=== PATIENT | female | born 1985 | race Caucasian/White ===

== ENCOUNTER 2023-08-31 12:42 | Outpatient (AMB) | payer MEDICAID, SELFPAY ==
--- NOTE | 2023-08-31 12:44 | A.OFFVIS_ITS ---
Intake Vital Signs 08/31/23 12:49 Height 5 ft 11 in Weight 145 lb BMI 20.2 BP 126/92 H Blood Pressure Location Lt brachial Position Sitting Pulse 113 H Intake Visit Reasons: Irritable bowel syndrome Intake Note: Lizette presents in the office for IBS. CC: She states that her stomach has been bothering her. She has been having a lot of nausea - she used to have pin worm infections twice and she is nervous it could be back again. Random gagging feeling. She has diarrhea and IBS. She states that lately she has been experiencing constipation. She has endometriosis. Manager Intermediate Required: No Allergies cromolyn Allergy (Mild, Verified 08/31/23 12:50) Unknown fluconazole [From Diflucan] Allergy (Mild, Verified 08/31/23 12:50) Unknown amoxicillin Allergy (Unknown, Verified 08/31/23 12:50) Hives amphetamine Allergy (Unknown, Verified 08/31/23 12:50) Unknown lansoprazole [Prevacid] Allergy (Unknown, Verified 08/31/23 12:50) hives penicillin V Allergy (Unknown, Verified 08/31/23 12:50) Hives sertraline [Zoloft] Allergy (Unknown, Verified 08/31/23 12:50) hives thyroid, pork [From [place] Thyroid] Allergy (Unknown, Verified 08/31/23 12:50) Unknown HPI Irritable bowel syndrome HPI Details 38-year-old female here for initial eval uation of IBS. She is referred by Lizette Terry DO of [facility]. 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 Pork products uncertain Diflucan Cromolym * Tivra LABS: none in our system TODAY'S VISIT Mother has MS and Crohns. She was sent to see Dr. Ha initially as she was told he is an expert in mast cell activation and GI problems. She is aware of contraindication of scopes. Has dysphagia of solid foods mid sternally. She would like an RX for Ensure....unsure how to order this. burning squeezing in the epigastrum ? diaphragm spasms as well. AT times she feels gas stuck in esophagus. She studies voice and speech pathology. Had diarrhea in past but now more CIC. Moving her bowels (drinks marzena, drinks a lot of water, intakes fiber). She struggles 1 weeks out of every month. But stools are rock hard and she uses glycerin supps. Has endometriosis. Takes probiotic. Want to treated for PInworms and had nausea in past with this, will retests. Has reactivation of many viral infections. Hx elevated bilirubin. Plan: Panc elastate, RAST, HP breath test, barium swallow. CAN NOT SCOPE R/T E-D DX. CRP, PROMETHEUS IBD SERIES. O&P (? [place] OTHER PARASITE INFECTIONS CLINICALLY??) GET IN TO SEE DR. HA. Continue follow with Dr. Francis son per patient request.. PFSH Surgical History Hx of colonoscopy No pertinent past surgical history Family History Father Webber esophagus CAD (coronary artery disease) History of ETOH abuse Mother Multiple sclerosis Lung cancer Son Autism Sister Anxiety Review of Systems Const Denies fatigue, Reports fever(s), Reports malaise, Denies night sweats, Reports poor appetite and Denies weight loss Eyes Details: glasses Reports requires corrective lenses ENT Reports Normal hearing present, Denies dental pain, Reports dysphagia, Denies hearing loss, Denies mouth pain, Reports neck pain, Denies odynophagia, Denies throat swelling, Denies tongue swelling and Reports other (Dentition adequate) Card Reports no additional complaints Resp Reports no additional complaints GI Reports abdominal pain, Denies melena, Denies bloating, Denies hematochezia, Reports constipation, Denies GI cramping, Reports dysphagia, Denies excessive flatus, Denies early satiety, Reports heartburn, Reports diarrhea, Reports na usea, Denies odynophagia, Denies vomiting and Denies hematemesis Musc Reports neck pain Skin/Breast Denies pruritus, Denies lesions, Denies rash and Denies jaundice Neuro Reports Normal hearing present and Denies Abnormal speech present Endo Denies fatigue Aller/Immun Denies throat swelling and Denies tongue swelling Physical Exam Vital Signs: Last Vital Signs Pulse 113 H 08/31/23 12:49 BP 126/92 H 08/31/23 12:49 BMI result Body Mass Index 20.2 Const General: cooperative, no acute distress, well developed and well groomed Nutritional Appearance: average body habitus and well nourished Orientation/consciousness: oriented to person, oriented to place and oriented to time Limitations: No language barrier HEENT Head: Yes normocephalic and Yes atraumatic Eyes General: appearance normal, both eyes and all related structures Pupils: Equal, round and reactive pupils present Neck Neck: Yes normal visual inspection and Yes no lymphadenopathy Thyroid: Thyroid normal Resp Effort & Inspection: normal respiratory effort and able to speak in complete sentences Auscultation: clear to auscultation bilaterally Cardio Rate: regular rate Rhythm: regular rhythm Heart sounds: Normal, physiologic split S2 sound present Peripheral pulses: radial pulses present and posterior tibial pulses present GI Inspection: No distended and No Abdominal panniculus present Palpation (GI): Soft to palpation, nontender, no guarding, not rigid and No hepatosplenomegaly present Percussion: Yes normal to percussion Auscultation: normal bowel sounds Rectal Exam - Female: deferred Skin General skin exam: no rashes or lesions noted, turgor normal, skin not dry, no jaundice, No spider nevi and no striae Rashes: no rashes Nails: normal Neuro General: oriented to person, oriented to place and oriented to time Cranial nerves: Yes Equal, round and reactive pupils present and Yes Normal hearing present Speech: No Abnormal speech present Extrem Other: wearing compression stockings General: Yes normal to inspection, No clubbing, No cyanosis and No edema Psych Appearance: grossly normal and well kempt Mental Status: mental status grossly normal Speech and movement: Normal speech and movement present Affect: normal affect Attitude: cooperative Thought process: Normal thought process present and not confabulating Thought content: Normal thought content present Insight: Other insight findings present (Psych) Judgement: Other judgement findings present (Psych) Assessment & Plan Assessment & Plan (1) Mariusz-Danlos syndrome: Code(s): Q79.60 - Mariusz-Danlos syndrome, unspecified Plan: Mother has MS and Crohns. She was sent to see Dr. Ha initially as she was told he is an expert in mast cell activation and GI problems. She is aware of contraindication of scopes. Has dysphagia of solid foods mid sternally. She would like an RX for Ensure....unsure how to order this. burning squeezing in the epigastrum ? diaphragm spasms as well. AT times she feels gas stuck in esophagus. She studies voice and speech pathology. Had diarrhea in past but now more CIC. Moving her bowels (drinks marzena, drinks a lot of water, intakes fiber). She struggles 1 weeks out of every month. But stools are rock hard and she uses glycerin supps. Has endometriosis. Takes probiotic. Want to treated for PInworms and had nausea in past with this, will retests. Has reactivation of many viral infections. Hx elevated bilirubin. Plan: Panc elastate, RAST, HP breath test, barium swallow. CAN NOT SCOPE R/T E-D DX. CRP, PROMETHEUS IBD SERIES. O&P (? [place] OTHER PARASITE INFECTIONS CLINICALLY??) GET IN TO SEE DR. HA. Continue follow with Dr. Francis son per patient request.. (2) Diarrhea: Code(s): R19.7 - Diarrhea, unspecified (3) GERD (gastroesophageal reflux disease): Code(s): K21.9 - Gastro-esophageal reflux disease without esophagitis (4) Constipation: Code(s): K59.00 - Constipation, unspecified (5) Family history of Crohn's disease: Code(s): Z83.79 - Family history of other diseases of the digestive system (6) Dysphagia: Code(s): R13.10 - Dysphagia, unspecified Orders: Orders H Pylori Breath Test 08/31/23 R19.7 - Diarrhea, unspecified, Z83.79 - Family history of other diseases of the digestive system, R13.10 - Dysphagia, unspecified Pancreatic Elastase-1 08/31/23 R19.7 - Diarrhea, unspecified, Z83.79 - Family history of other diseases of the digestive system, R13.10 - Dysphagia, unspecified Rast Allergen 08/31/23 R19.7 - Diarrhea, unspecified, Z83.79 - Family history of other diseases of the digestive system, R13.10 - Dysphagia, unspecified FL barium swallow 08/31/23 R19.7 - Diarrhea, unspecified, Z83.79 - Family history of other diseases of the digestive system, R13.10 - Dysphagia, unspecified Ova and Parasite 08/31/23 R19.7 - Diarrhea, unspecified, Z83.79 - Family history of other diseases of the digestive system, R13.10 - Dysphagia, unspecified C Reactive Protein 08/31/23 R19.7 - Diarrhea, unspecified, Z83.79 - Family history of other diseases of the digestive system, R13.10 - Dysphagia, unspecified [facility] IBD SGI 08/31/23 R19.7 - Diarrhea, unspecified, Z83.79 - Family history of other diseases of the digestive system, R13.10 - Dysphagia, unspecified Coding Level of Care Code New Pt Level 3 (01604) Diagnoses Mariusz-Danlos syndrome Q79.60 Diarrhea R19.7 GERD (gastroesophageal reflux disease) K21.9 Constipation K59.00 Family history of Crohn's disease Z83.79 Dysphagia R13.10
[2023-08-31 12:49] VITALS: BP 126/92; PULSE 113; BMI 20.2
== END 2023-08-31 14:07 | disposition home or self-care (01) ==
PROVIDERS: PCP Family Medicine; Visit Provider Nurse Practitioner
DX: Q79.60 Ehlers-Danlos syndrome, unspecified (principal); R19.7 Diarrhea, unspecified; K21.9 Gastro-esophageal reflux disease without esophagitis; K59.00 Constipation, unspecified; Z83.79 Family history of other diseases of the digestive system; R13.10 Dysphagia, unspecified
CPT/HCPCS: 99203

== ENCOUNTER → 2023-08-31 12:42 | Outpatient (BNVA) | payer MEDICAID, SELFPAY | PROVIDERS: PCP Family Medicine; Visit Provider Nurse Practitioner | DX: K21.9 Gastro-esophageal reflux disease without esophagitis (principal); K59.00 Constipation, unspecified; Q79.60 Ehlers-Danlos syndrome, unspecified; R19.7 Diarrhea, unspecified; R13.10 Dysphagia, unspecified; Z83.79 Family history of other diseases of the digestive system | CPT/HCPCS: 99202 ==

== ENCOUNTER 2024-05-18 10:38 | Outpatient (AMB) | payer MEDICAID, SELFPAY ==
--- NOTE | 2024-05-18 10:39 | MHC.OFFVIS ---
Intake Visit Reasons: f/u - pin worms Intake Note: Patient follow up for pin-worms Patient cc: abdominal pain with cramping and bloating on and off, between diarrhea and constipation with dark stool and swallowing problems. Heavy Equipment Technician Required: No Accompanied by: Self / Same As Patient Allergies cromolyn Allergy (Mild, Verified 05/18/24 10:39) Unknown fluconazole [From Diflucan] Allergy (Mild, Verified 05/18/24 10:39) Unknown amoxicillin Allergy (Unknown, Verified 05/18/24 10:39) Hives amphetamine Allergy (Unknown, Verified 05/18/24 10:39) Unknown lansoprazole [Prevacid] Allergy (Unknown, Verified 05/18/24 10:39) hives penicillin V Allergy (Unknown, Verified 05/18/24 10:39) Hives sertraline [Zoloft] Allergy (Unknown, Verified 05/18/24 10:39) hives thyroid, pork [From [place] Thyroid] Allergy (Unknown, Verified 05/18/24 10:39) Unknown HPI HPI f/u - pin worms: Details: 38-year-old female being called for f/u--hx of MCAS, POTs and mona Danlos RECAP: Initially saw vanessa Thomas Mother has MS and Crohns. She is aware of contraindication of scopes. Has dysphagia of solid foods mid sternally. burning squeezing in the epigastrum ? diaphragm spasms as well. AT times she feels gas stuck in esophagus. She studies voice and speech pathology. Had diarrhea in past but now more CIC. Moving her bowels (drinks marzena, drinks a lot of water, intakes fiber). She struggles 1 week out of every month. Stools can be rock hard and she uses glycerin supps. Has endometriosis. Takes probiotic. Want to treated for PInworms and had nausea in past with this. Has reactivation of many viral infections. Hx elevated bilirubin. TESTS: RAST: pos for egg white, and hazelnut--low level CRP- neg HP breath test--neg INTERIM: she is recovering from drinking coconut water she is gluten sensitive mold in the house and is being addressed she avoids raw veg takes histogest which seems to help itching skin she tried rifaximin for 2 weeks and did help some symptoms andrés distention and bloating she has GERD, FH of barretts esophagus she had bad reaction to zantac she has trouble following diets due to ADHD and autism she gets flu like symptoms with cromolyn she takes quercetin but low dose she bueno shave some RUQ discomfort Exam-limited: looks relaxed, talking easily A/P: 1/ MCAS and assorted sx PLAN: 1/ hold on endoscopies and bx for the moment 2/ recommend trial of famotidine 3/ nutrients and vit level check 4/ US abdo if no better with famotidine PFSH Surgical History Hx of colonoscopy No pertinent past surgical history Family History Father Webber esophagus CAD (coronary artery disease) History of ETOH abuse Mother Multiple sclerosis Lung cancer Son Autism Sister Anxiety Telehealth Telehealth Telehealth Platform: [facility] Location of provider rendering services: practice address Location of patient: address on file Patient Identification confirmed using: Name, : Yes Telehealth method: video Patient verbally consented to treatment: Yes Patient verbally consented to billing insurance company: Yes Patient informed of any privacy concerns related to visit: Yes Minutes spent on Phone/Video with Pt.: 24 Assessment & Plan Assessment & Plan (1) Malnutrition: Code(s): E46 - Unspecified protein-calorie malnutrition Category: Medical Plan: see above Orders: Orders Vitamin A Today E46 - Unspecified protein-calorie malnutrition Vitamin B1 Today E46 - Unspecified protein-calorie malnutrition Vitamin B12 and Folate Today E46 - Unspecified protein-calorie malnutrition Vitamin B5 (Pantothenic Acid) Today E46 - Unspecified protein-calorie malnutrition Vitamin B6 Today E46 - Unspecified protein-calorie malnutrition Vitamin C Today E46 - Unspecified protein-calorie malnutrition Vitamin E Today E46 - Unspecified protein-calorie malnutrition Zinc Today E46 - Unspecified protein-calorie malnutrition Ferritin Today E46 - Unspecified protein-calorie malnutrition Tryptase Today E46 - Unspecified protein-calorie malnutrition, R19.7 - Diarrhea, unspecified Histamine Plasma Today E46 - Unspecified protein-calorie malnutrition Immunoglobulins,IgG IgA IgM Today E46 - Unspecified protein-calorie malnutrition BRENDEN Reflex Titer and Pattern Today E46 - Unspecified protein-calorie malnutrition, R79.82 - Elevated C-reactive protein (CRP) Vitamin B3 (Niacin) Today E46 - Unspecified protein-calorie malnutrition Vitamin D 25-OH Total Today E46 - Unspecified protein-calorie malnutrition Vitamin K1 Today E46 - Unspecified protein-calorie malnutrition Magnesium Today E46 - Unspecified protein-calorie malnutrition Medications: New famotidine 20 mg PO BEDTIME 30 tabs 0RF Coding Level of Care Code Est Pt Level 4 (30238) Diagnoses Malnutrition E46
== END 2024-05-18 11:28 | disposition home or self-care (01) ==
LOC: HO.HGI 10:38
PROVIDERS: PCP Family Medicine; Visit Provider Internal Medicine Gastroenterology
DX: E46 Unspecified protein-calorie malnutrition (principal)
CPT/HCPCS: 99214

== ENCOUNTER → 2024-05-18 10:38 | Outpatient (BNVA) | payer MEDICARE, MEDICAID, SELFPAY | PROVIDERS: PCP Family Medicine; Visit Provider Internal Medicine Gastroenterology | DX: E46 Unspecified protein-calorie malnutrition (principal) | CPT/HCPCS: 99212 ==

== ENCOUNTER 2024-08-10 09:06 | Outpatient (AMB) | payer MEDICAID, SELFPAY ==
--- NOTE | 2024-08-10 09:06 | A.OFFVIS_ITS ---
Intake Visit Reasons: Gastroesophageal reflux disease (GERD) Intake Note: Lizette presents as a telehealth today. States that she believes that she is having acid reflux but she is not sure so she just wants to figure what goes on. Allergies cromolyn Allergy (Mild, Verified 08/10/24 09:06) Unknown fluconazole [From Diflucan] Allergy (Mild, Verified 08/10/24 09:06) Unknown amoxicillin Allergy (Unknown, Verified 08/10/24 09:06) Hives amphetamine Allergy (Unknown, Verified 08/10/24 09:06) Unknown lansoprazole [Prevacid] Allergy (Unknown, Verified 08/10/24 09:06) hives penicillin V Allergy (Unknown, Verified 08/10/24 09:06) Hives sertraline [Zoloft] Allergy (Unknown, Verified 08/10/24 09:06) hives thyroid, pork [From [place] Thyroid] Allergy (Unknown, Verified 08/10/24 09:06) Unknown HPI HPI Gastroesophageal reflux disease (GERD): Details: 38-year-old female being called for f/u--hx of MCAS, POTs and mona Danlos RECAP: Initially saw vanessa Thomas Mother has MS and Crohns. She is aware of contraindication of scopes. Has dysphagia of solid foods mid sternally. burning squeezing in the epigastrum ? diaphragm spasms as well. AT times she feels gas stuck in esophagus. She studies voice and speech pathology. Had diarrhea in past but now more CIC. Moving her bowels (drinks marzena, drinks a lot of water, intakes fiber). She struggles 1 week out of every month. Stools can be rock hard and she uses glycerin supps. Has endometriosis. Takes probiotic. Want to treated for PInworms and had nausea in past with this. Has reactivation of many viral infections. Hx elevated bilirubin. TESTS: RAST: pos for egg white, and hazelnut--low level CRP- neg HP breath test--neg INTERIM: she tried the famotidine had soem strange reaction, but if she drinks more water with it then she is ok she feels better with it she is going to get allergy shots as well reviewed labs, low normal still dealing with mold in her apartment she takes quercetin but low dose Exam-limited: looks relaxed, talking easily A/P: 1/ MCAS and assorted sx PLAN: 1/ doing better with famotidine, can increase to 20 mg bid 2/ cont with quercetin 3/ can increase Vit C to 2 g daily PFSH Surgical History Hx of colonoscopy No pertinent past surgical history Family History Father Webber esophagus CAD (coronary artery disease) History of ETOH abuse Mother Multiple sclerosis Lung cancer Son Autism Sister Anxiety Telehealth Telehealth Telehealth Platform: [address] Location of provider rendering services: practice address Location of patient: address on file Patient Identification confirmed using: Name, : Yes Telehealth method: video Patient verbally consented to treatment: Yes Patient verbally consented to billing insurance company: Yes Patient informed of any privacy concerns related to visit: Yes Minutes spent on Phone/Video with Pt.: 11 Assessment & Plan Assessment & Plan (1) Mast cell activation syndrome: Code(s): D89.40 - Mast cell activation, unspecified Category: Medical Plan: see above Medications: Changed From famotidine 20 mg PO ONCE 30 tabs 3RF To famotidine 20 mg PO BID 60 tabs 3RF Coding Level of Care Code Tele Est Pt Level 3 (15512) Diagnoses Mast cell activation syndrome D89.40
== END 2024-08-10 09:27 | disposition home or self-care (01) ==
LOC: HO.HGI 09:06
PROVIDERS: Visit Provider Internal Medicine Gastroenterology
DX: D89.40 Mast cell activation, unspecified (principal); K21.9 Gastro-esophageal reflux disease without esophagitis
CPT/HCPCS: 99213

== ENCOUNTER → 2024-08-10 09:06 | Outpatient (BNVA) | payer MEDICAID, SELFPAY | PROVIDERS: Visit Provider Internal Medicine Gastroenterology ==

== ENCOUNTER 2025-01-28 10:10 | Outpatient (AMB) | payer MEDICAID, SELFPAY ==
--- NOTE | 2025-01-28 10:11 | A.OFFVIS_ITS ---
Vital Signs 01/28/25 10:14 Height 5 ft 10.5 in Weight 160 lb BMI 22.6 BP 115/76 Blood Pressure Location Lt brachial Position Sitting Pulse 95 Intake Visit Reasons: 6 month follow up Intake Note: Lizette presents in the office as a 6 month follow up. CC: She states that she was having adverse reactions to the hydroxyzine that they were giving her to try and treat her mast cell and also states she may also have an adverse reaction to benadryl. She is on a short term treatment for mycoplasma pneumonia. She has 2 more doses of tafenoquine as well that she was prescribed. Her skin has gotten better a long with her migraines until she took the hydroxyzine and that gave her migraines as well. She states that she takes her BP at home due to her POTS. Manager Services Required: No Allergies cromolyn Allergy (Mild, Verified 01/28/25 10:15) Unknown fluconazole [From Diflucan] Allergy (Mild, Verified 01/28/25 10:15) Unknown amoxicillin Allergy (Unknown, Verified 01/28/25 10:15) Hives amphetamine Allergy (Unknown, Verified 01/28/25 10:15) Unknown lansoprazole [Prevacid] Allergy (Unknown, Verified 01/28/25 10:15) hives penicillin V Allergy (Unknown, Verified 01/28/25 10:15) Hives sertraline [Zoloft] Allergy (Unknown, Verified 01/28/25 10:15) hives aripiprazole [From Abilify] Adverse Reaction (Mild, Verified 01/28/25 10:15) Unknown hydroxyzine Adverse Reaction (Mild, Verified 01/28/25 10:15) stiff neck thyroid, pork [From [place] Thyroid] Adverse Reaction (Unknown, Verified 01/28/25 10:15) mouth itch HPI HPI 6 month follow up: Details: 39-year-old female being seen for f/u--hx of MCAS, POTs and mona Danlos RECAP: Initially saw vanessa Thomas Mother has MS and Crohns. She is aware of contraindication of scopes. Has dysphagia of solid foods mid sternally. burning squeezing in the epigastrum ? diaphragm spasms as well. AT times she feels gas stuck in esophagus. She studies voice and speech pathology. Had diarrhea in past but now more CIC. Moving her bowels (drinks marzena, drinks a lot of water, intakes fiber). She struggles 1 week out of every month. Stools can be rock hard and she uses glycerin supps. Has endometriosis. Takes probiotic. Want to treated for PInworms and had nausea in past with this. Has reactivation of many viral infections. Hx elevated bilirubin. TESTS: RAST: pos for egg white, and hazelnut--low level CRP- neg HP breath test--neg INTERIM: she feels constipated since estrogen was increased she tried rifaximin and it has helped some of her constipation and distention she still feels distended and abdominal pressure she is anxious as her mother had diverticulitis she is having nausea a lot heartburn persistent she is not keen on egd or colo she had reaction to hydroxyzine 10 mg given by locomotive observer she has swallowing issues, choking on saliva, usu with solids EXAM: GENERAL: The patient is well developed and nontoxic. VITAL SIGNS:see workflow HEENT: Nonicteric sclerae, PERRLA, EOMI. Oropharynx clear. Moist mucous membranes. Conjunctivae appear well perfused. No thyroid mass. CHEST: Chest wall is nontender. HEART: Regular rate and rhythm without murmurs. LUNGS: Clear to auscultation bilaterally. ABDOMEN: Soft, positive bowel sounds, nontender, no organomegaly.no flank tenderness SKIN: No rash, no excessive bruising, petechiae, or purpura. NEUROLOGIC: Cranial nerves II-XII intact without motor/sensory deficit. Psych: normal affect A/P: 1/ MCAS and assorted sx 2/ dysphagia ?2/2 GERD 3/ altered bowel habit ?2/2 estrogen PLAN: 1/ CTe r/o small bowel path or other intra abdominal issues 2/ Ba swallow 3/ check labs incl mineral and vitamin levels 4/ cont with famotidine PFSH Surgical History Hx of colonoscopy No pertinent past surgical history Family History Father Webber esophagus CAD (coronary artery disease) History of ETOH abuse Mother Multiple sclerosis Lung cancer Son Autism Sister Anxiety Physical Exam Vital Signs: BMI result Body Mass Index 22.6 Assessment & Plan Assessment & Plan (1) Dysphagia: Code(s): R13.10 - Dysphagia, unspecified Category: Medical Plan: as above (2) Mast cell activation syndrome: Code(s): D89.40 - Mast cell activation, unspecified Category: Medical Plan: as above Orders: Orders CT enterography Today R10.33 - Periumbilical pain FL barium swallow Today R13.10 - Dysphagia, unspecified Coding Level of Care Code Est Pt Level 4 (85436) Diagnoses Dysphagia R13.10 Mast cell activation syndrome D89.40
[2025-01-28 10:14] VITALS: BP 115/76; PULSE 95; BMI 22.6
--- OUTSIDE RECORDS SUMMARY | 2025-01-28 11:21 | XMS_ITS | Clinical Summary ---
Author Organization [facility] Address [address] [place] [address] Care Team Providers Care Telephonic Nurse Case Manager Name Role Phone Alisha Vincent Primary Care Provider [phone] Demi Rachel MD Unavailable [phone] Deng Alexis Unavailable [phone] Allergies Active Allergy Reactions Criticality Noted Date Comments Amoxicillin Unknown Medium 10/05/2021 Amphetamine Palpitations High 11/01/2015 Confusion Cromolyn 07/08/2023 Chest tightness & flu-like symptoms- per pt Dexlansoprazole Other (see comments) 07/21/2016 Esomeprazole Magnesium Other (see comments) Fluconazole Rash Medium 04/13/2022 Fludrocortisone 04/13/2022 Gluten 04/13/2022 Lansoprazole Other (see comments) 07/21/2016 Latex 06/20/2012 Other reaction(s): irritation, vag yeast infection Penicillins Hives,Unknown,Other (see comments) 06/20/2012 Serotonin Unknown Medium 11/01/2015 All SSRIs Sertraline Other (see comments) 07/21/2016 Medications azelaic acid 15 % creamIndication s:Acne vulgaris massage a thin film of azelaic acid cream into the affected area twice daily, in the morning and evening. 50 g 11 2 Active Libby, 28, 3-0.02 mg per tablet Take 1 tablet by mouth. 3 Active Tirosint 50 mcg capsule TAKE 1 (ONE) CAPSULE BY MOUTH HALF HOUR BEFORE BREAKFAST Active levocetirizine (XYZAL) 5 mg tablet Take 1 tablet by mouth 2 (two) times a day as needed. Active liothyronine (CYTOMEL) 5 mcg tablet 1/2 TABLET BY MOUTH HALF HOUR BEFORE BREAKFAST Active levothyroxine sodium (TIROSINT) 88 mcg capsule TAKE 1 TABLET BY MOUTH DAILY 1/2 HOUR BEFORE BREAKFAST 3 Active tacrolimus (PROTOPIC) 0.1 % ointment Apply topically. Ac tive ondansetron (ZOFRAN) 4 mg tabletIndicatio ns:Headache disorder Take by mouth every 8 (eight) hours as needed for nausea or vomiting. Active LORazepam (ATIVAN) 0.5 mg tabletIndicatio ns:anxiety Take 1 tablet (0.5 mg total) by mouth See admin instructions for 2 doses Indications: anxious. 1 tablet by mouth 30 minutes prior to procedure. Can repeat 1 tablet if anxiety not relieved prior to procedure. DO NOT DRIVE TO AND FROM THE APPOINTMENT. DO NOT DRIVE FOR 24 HOURS AFTER TAKING THE TABLET. 2 tablet 3 Active Active Problems Problem Noted Date Diagnosed Date JOSÉ MANUEL (obstructive sleep apnea) 02/10/2023 Assessment & Plan (07/13/2024 8:39 AM EDT): Lizette continues to report poor sleep quality. Her home sleep test did not reveal obstructive sleep apnea however her apnea hypopnea index was high end of normal. Home sleep test can under report obstructive sleep apnea. I have a high suspicion for JOSÉ MANUEL. Lizette would like to proceed with an in lab sleep test. Recommendations 1. In lab polysomnography Assessment & Plan (05/28/2023 1:38 PM EDT): Lizette continues to report poor sleep quality. Her home sleep test did not reveal obstructive sleep apnea however her apnea hypopnea index was high end of normal. Home sleep test can under report obstructive sleep apnea. I still have a high enough suspicion that I recommend she consider an in lab sleep test. Lizette would like to proceed with an in lab sleep test however she needs to coordinate childcare for her son. Lizette will get back to me if she is able to coordinate childcare in order to have the in lab sleep test here at [facility]. Recommendations 1. In lab polysomnography Assessment & Plan (02/10/2023 9:40 PM EDT): She has excessive daytime sleepiness and poor sleep quality. I have some suspicion for obstructive sleep apnea. Recommendations: 1. Home sleep testing Dyspnea 02/10/2023 Assessment & Plan (08/03/2023 8:03 PM EDT): The etiology of her dyspnea is not precisely clear. She has no evidence of obstruction or restriction on pulmonary function testing but she has a mildly reduced diffusion capacity. The etiology of this is not precisely clear either. Further evaluation would include chest imaging. After discussing this with Lizette she would like to proceed with additional testing. Recommendation 1. HRCT of the chest I will call her with the results once available Assessment & Plan (05/28/2023 1:43 PM EDT): She has dyspnea that has progressed over the last 2 years along with a history of heavy tobacco use. PFTs did not show evidence of obstruction or restriction however there is a mild degree of reduced diffusion capacity. I discussed the differential diagnosis of a reduced diffusion capacity with Lizette including blood clot, interstitial lung disease from a variety of causes which could include hypersensitivity pneumonitis or autoimmune condition, or pneumonia. I do not suspect an acute or chronic blood clot or pneumonia. The next step would be to obtain chest imaging. Lizette has had chest x-rays done at outside hospitals which I would like to be able to view to assess for any abnormalities. Recommendations: 1. Obtain previously performed chest imaging including chest x-ray and a CT of the abdomen and pelvis which would include images of the lung bases 2. Will consider HRCT Assessment & Plan (02/10/2023 9:41 PM EDT): She has dyspnea that has progressed over the last 2 years along with a history of heavy tobacco use. Recommendations: 1. 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 POTS (postural orthostatic tachycardia syndrome) 03/26/2021 Autistic disorder 03/26/2021 Dysphonia 07/25/2016 Overview (04/13/2022): Last Assessment & Plan: Clearing, cough, globus assoiated with dysphonia, mostly MTD Significant MTD with extralryngeal/neck muscle use Dexilant works best for LPR sxs but insurance doesn't cover Recommend: Voice rx with Myriam OTC PPI Precautions - book recommended Last Assessment & Plan: Clearing, cough, globus assoiated with dysphonia, mostly MTD Significant MTD with extralryngeal/neck muscle use Dexilant works best for LPR sxs but insurance doesn't cover Recommend: Voice rx with Myriam OTC PPI Precautions - book recommended 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 Depressive disorder 12/09/2005 Dysphagia 12/09/2005 Resolved Problems Problem Noted Date Diagnosed Date Resolved Date History of substance abuse 03/26/2021 0 04/13/2022 Immunizations Name Administration Dates Next Due COVID-19 mRNA (PFIZER) 04/30/2021 Influenza, Quadrivalent 08/27/2019 Family History Medical History Relation Comments Lymphoma Maternal Grandfather Bladder Cancer Mother Multiple sclerosis Mother Autism Mother's Brother Prostate cancer Paternal Grandfather Breast cancer Paternal Grandmother Skin cancer Paternal Grandmother Autism Son Relation Status Comments Father Alive Maternal Grandfather Mother Alive Mother's Brother Paternal Grandfather Paternal Grandmother Son Alive Social History Tobacco Use Types Packs/Day Years Used Date Smoking Tobacco: Former Cigarettes 2 9 0 06/30/2001 - 06/30/2010 Passive Smoke Exposure: Past Smokeless Tobacco: Never Alcohol Use Standard Drinks/Week Comments Not Currently 0 (1 standard drink = 0.6 oz pur e alcohol) Comments No Sex and Gender Information Value Date Recorded Sex Assigned at Not on file Legal Sex Female 4:44 AM EST Gender Identity Not on file Sexual Orientation Not on file Last Filed Vital Signs Vital Sign Reading Time Taken Comments Blood Pressure 110/74 08/02/2023 4:36 PM EDT Pulse 86 08/02/2023 4:36 PM EDT Temperature - - Respiratory Rate 16 08/02/2023 4:36 PM EDT Oxygen Saturation 98% 08/02/2023 4:36 PM EDT room air Inhaled Oxygen Concentration - - Weight 59.9 kg (132 lb) 08/02/2023 4:36 PM EDT Height 180.3 cm (5' 11 ) 08/02/2023 4:36 PM EDT Body Mass Index 18.41 08/02/2023 4:36 PM EDT Plan of Treatment Upcoming Encounters Date Type Department Care Team (Late st Contact Info) Description 04/03/2025 4:15 PM EDT Office Visit [facility] Department of Dermatology [address] [place] [address] [place] [address] Orly Posada PA-C [address] [facility] [place] [address] Health Maintenance Due Date Last Done Comments Breast Cancer Screening 1984 HIV Screening 1984 Pneumococcal Vaccine: Pediatrics (0 to 5 Years) and At-Risk Patients (6 to 64 Years) (1 of 2 - PCV) 1990 Hepatitis C Screening 2002 Hepatitis B Vaccines (1 of 3 - 19+ 3-dose series) 2003 COVID-19 Vaccine (3 - 2023-2 5 season) 2024 04/30/2021, 03/27/2021 Influenza Vaccine (#1) 2024 08/27/2019 Pap Smear 09/18/2027 09/18/2024, 06/08/2021 Cervical Cancer Screening 09/18/2029 HPV/Cotest 09/18/2029 09/18/2024, 06/08/2021 DTaP,Tdap,and Td Vaccines (3 - Td or Tdap) 04/25/2033 04/25/2023, 12/12/2012 Zoster Vaccines (1 of 2) 2034 HPV Vaccines Aged Out No longer eligi ble based on patient's age to complete this topic Hepatitis A Vaccines Aged Out No long er eligible based on patient's age to complete this topic MMR Vaccines Aged Out No longer eligi ble based on patient's age to complete this topic Meningococcal Vaccine Aged Out No shayne alfie eligible based on patient's age to complete this topic Insurance MEDICAID [employer] Care Teams Telephonic Nurse Case Manager Relationship Specialty Start Date End Date Alisha Vincent [address] [place] [address] [address] [place] [address] PCP - General Internal Medicine 10/09/21 Deng Alexis [address] [facility] [address] [place] [id number] PCP - Insurance Payer PCP 06/21/24 Demi Rachel MD [id number] [place] [address] Consulting Physician Obstetrics and Gynecology 10/09/21
--- OUTSIDE RECORDS SUMMARY | 2025-01-28 11:21 | XMS_ITS | Clinical Summary ---
Author Organization [facility] Address [address] [place] [address] Care Team Providers Care Equity Director Name Role Phone Unavailable Primary Care Provider Unavailabl e Surgical History Surgery Date Site/Laterality Comments OTHER SURGICAL HISTORY PROCEDURE: DENIES PREVIOUS SURGERY Medical History Medical History Date Comments Hypothyroid DX:Hypothyroid Asthma DX:Asthma GERD (gastroesophageal reflux disease) DX:GERD (gastroesophageal reflux disease) IBS (irritable bowel syndrome) D X:IBS (irritable bowel syndrome) History of depression DX:History of depression; COMMENT: saw therapist PP, doing well now Family History Medical History Relation Name Comments Strabismus Brother Heart attack Father Barretts Esopha rose Other: heart attack Father Strabismus Father Other: lymphoma Maternal Grandfather Cataracts Maternal Grandmother Diabetes Maternal Grandmother Glaucoma Maternal Grandmother Lung cancer Maternal Grandmother of heart disease; smoker Thyroid disease Maternal Grandmother Arthritis Mother Diabetes Mother gestational Other: Crohns disease Mother Other: polio Other at 50-cullen rnal great aunt Prostate cancer Paternal Grandfather Breast cancer Paternal Grandmother age 68 , also had melanoma and lung cancer Lung cancer Paternal Grandmother Blindness Neg Hx Colon cancer Neg Hx Macular degeneration Neg Hx Ovarian cancer Neg Hx Relation Name Status Comments Brother Alive Father Alive 5 MIs, first ND age 45 Maternal Grandfather Maternal Grandmother Mother Alive Other Paternal Grandfather Alive Paternal Grandmother Sister Alive Son Alive 03/2012 Social History Tobacco Use Types Packs/Day Years Used Date Smoking Tobacco: Former Cigarettes Q uit: 11/21/2006 Smokeless Tobacco: Never Alcohol Use Standard Drinks/Week Comments Yes 0 (1 standard drink = 0.6 oz pur e alcohol) Comments Unknown Sex and Gender Information Value Date Recorded Sex Assigned at Not on file Legal Sex Female 10:43 AM EST Gender Identity Not on file Sexual Orientation Not on file Obstetrics History Plan of Treatment Health Maintenance Due Date Last Done Comments Breast Cancer Screening 1984 Hepatitis B Vaccines (1 of 3 - 19+ 3-dose series) 2003 Pneumococcal Vaccine: Pediatrics (0 to 5 Years) and At-Risk Patients (6 to 64 Years) (1 of 2 - PCV) 2003 Cervical Cancer Screening: P ap Smear 2005 Depression Screening 10/25/2022 HIV Screening 10/25/2022 Hepatitis C Screening 10/25/2022 Social Influencers of Health Screening 10/25/2022 DTaP,Tdap,and Td Vaccines (2 - Td or Tdap) 12/12/2022 12/12/2012 COVID-19 Vaccine (2 - 2023-2 5 season) 2024 03/27/2021 Influenza Vaccine (#1) 2024 4, 12/12/2012 HIB Vaccines Aged Out No longer eligi ble based on patient's age to complete this topic HPV Vaccines Aged Out No longer eligi ble based on patient's age to complete this topic Hepatitis A Vaccines Aged Out No long er eligible based on patient's age to complete this topic IPV Vaccines Aged Out No longer eligi ble based on patient's age to complete this topic MMR Vaccines Aged Out No longer eligi ble based on patient's age to complete this topic Meningococcal ACWY Vaccine Aged Out N o longer eligible based on patient's age to complete this topic Meningococcal B Vacine Aged Out No lo nger eligible based on patient's age to complete this topic RSV Immunization Patients Under 20 months Aged Out No longer eligible b ased on patient's age to complete this topic Varicella Vaccines Aged Out No longer eligible based on patient's age to complete this topic
--- OUTSIDE RECORDS SUMMARY | 2025-01-28 11:21 | XMS_ITS | Data Portability ---
Author Organization [place] - [facility], [facility] Address [address] [place] [address] Care Team Providers Care Research Consultant Name Role Phone LULY LÓPEZ OTHER ALEXA CASTILLO Primary Care Provider Assessment Encounter Date Assessment Date Assessment LastModified by Organization Details LastModified Time 10/24/2023 10/24/2023 Performed by Avinash Escobedo MD, [employer], Patient is a dede 37-year-old here for follow-up for chronic pelvic pain. -Chronic pelvic pain and dysmenorrhea: Patient had dysmenorrhea since menarche and has been on oral contraceptives on and off with variable results. Patient reports that she experiences a lot of side effects with hormonal intervention and was told by her ancillary services manager that she is allergic to her own hormones especially progesterone. She is doing well on the lo Loestrin at this time. Higher doses of oral contraceptives had resulted in several side effects including worsening migraines, increased depression etc. Patient trialed the NuvaRing and the Mirena and on both occasions felt that it resulted in generalized body aches as well as increased depression and would not like to trial either again. Endometriosis was suggested as a possible etiology. I think this is possible given her symptomatology as well as the finding of acutely retroverted uterus on imaging. I also discussed the possibility of adenomyosis given the appearance of her uterus on ultrasound which appeared heterogeneous on imaging. Patient also has 2 measurable uterine fibroids. See below. We reviewed management options thoughtfully last visit. We discussed surgical intervention as a possibility but given her several medical issues we did not want to jump into surgery unless needed for worry about anesthesia complications. She is currently on low Loestrin and having improvement in her symptoms however occasionally will have some flareups. She is on continuous regimen. At this point we agreed to continue with low Loestrin. Patient informs me that she is looking into adjuncts and supplements that may improve her symptoms further. We discussed a anti-inflammatory diet. I will follow-up with the patient again in 3 months to see how she is doing. -Possible adenomyosis: Based on the appearance of the uterus on ultrasound I have high suspicion for adenomyosis. I reviewed the pathophysiology of adenomyosis with the patient. Patient understands that I cannot excise adenomyosis separate from the uterus. We discussed another trial of an IUD however patient is not interested in that. At this time will continue with pills as above and discuss possible hysterectomy as needed. -Uterine fibroids: 9 mm anterior fibroid as well as a 2.5 cm posterior fibroids were measured. Other possibility for these lesions is adenomyoma's. Both fibroids abut the endometrium but do not extend into the cavity. 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 Patient reports that suppression of the ovary is helping her allergy. -POTS -Mariusz-Danlos syndrome. -IBS 25 minutes total: reviewing chart/history and records from transferring practice (5 minutes) counseling patient (15 minutes) documenting in patient? s record (5 minutes) ralammari Not available 10/24/2023 17:03:47 01/10/2024 01/10/2024 Patient is a dede 38-year-old here for evaluation of vaginal and vulvar burning and itching after receiving a course of antibiotics as well as a cyst that developed on her mons pubis and since she had drained it by expressing it. The area of cyst on her mons pubis had completely resolved. Patient advised not to express any skin abscess or cysts and to use sitz bath's to drain it. Otherwise swab was collected for rule out BV and yeast. Patient would like to defer treatment until infection is confirmed. Of note, patient is allergic to Diflucan. 20 minutes total: reviewing chart/history and records from transferring practice (5 minutes) examining patient (5 minutes) counseling patient (5 minutes) documenting in patient? s record (5 minutes) [email or web address] Not available 01/10/2024 10:32:41 09/18/2024 09/18/2024 Patient is a dede 39-year-old here for yearly gynecologic visit. -Cervical cancer screening: Pap smear performed today. -Breast cancer screening: Mammogram ordered. Breast exam unremarkable. -Contraception: Patient on lo Loestrin. Experiencing some symptoms concerning for low estrogen including night sweats and hair loss. I recommended increasing the dose of estrogen in her pill and she is agreeable. -Depression screening: PHQ is 2 but patient admits to stress and feeling overwhelmed with everything she has to deal with in regards to her health and also her life circumstances. Other problem list include: -Chronic pelvic pain and dysmenorrhea: There was concern for endometriosis and patient is currently managed medically. Previously to refer to consult note for further details. -Uterine fibroids: 9 mm anterior fibroid as well as a 2.5 cm posterior fibroids were measured. Other possibility for these lesions is adenomyoma's. Both fibroids abut the endometrium but do not extend into the cavity. Patient may be interested in repeat ultrasound at some point. -Mast cell activation syndrome -POTS -IBS ralammari Not available 09/18/2024 15:55:25 10/23/2024 10/23/2024 Patient is a dede 39-year-old scheduled for telemedicine visit to discuss results of increasing her control pill dose. -Vasomotor symptoms on low Loestrin: Patient is a dede 39-year-old scheduled for telemedicine visit to discuss results of increasing her control pill dose. -Chronic pelvic pain and dysmenorrhea: There was concern for endometriosis and patient is currently managed medically. Previously to refer to consult note for further details. Currently managing with control pills. -Uterine fibroids: 9 mm anterior fibroid as well as a 2.5 cm posterior fibroids were measured. Other possibility for these lesions is adenomyoma's. Both fibroids abut the endometrium but do not extend into the cavity. Patient may be interested in repeat ultrasound at some point. -Acne and hair loss: Patient interested in trying spironolactone. She also was noted recently to have mildly elevated blood pressures at her primary care's office so is looking for also the secondary effect of lowering her blood pressure. Will start a trial of spironolactone. Patient was advised to have a potassium assessment 3 months after initiation. -Mast cell activation syndrome -POTS -IBS 25 minutes total: reviewing chart/history and records from transferring practice (5 minutes) counseling patient (10 minutes) documenting in patient? s record (5 minutes) ordering Rx through pharmacy (5 minutes) [email or web address] Not available 10/23/2024 19:49:10 Plan of Treatment Reminders Order Date Submit Date Provider Last Modified By Organization Details Last Modified Time Details Appointments None recorded. Lab pap, IG + HPV 2023 [facility], [address] [place] [address], [id number] 4 06:45:57 bacterial vaginosis + vaginitis panel, vaginal 2023 [facility], [address] [place] [address], [id number] 4 13:51:32 Referral None recorded. Procedures None recorded. Surgeries None recorded. Imaging MAMMO, screening, tomosynthes is, bilateral 2023 [facility], [address] [facility], [place], [address], 5 11:28:00 Medication Orders spironolact one 50 mg tablet 2023 [facility], [address] [place], [address], 4 15:23:20 estradiol 0.05 mg/24 hr semiweekly transdermal patch 2023 [facility], [address] [place], [address], 4 15:23:20 Loestrin Fe 1.5/30 (28-Day) 1.5 mg-30 mcg (21)/75 mg (7) tablet 2023 [facility], [address] [place], [address], 16:00:18 Patient TargetsNo targets recorded. Patient Instructions Encounter Date Encounter Id Patient Instructions Last Modified By Organization Details Last Modified Time 10/24/2023 [id number] chronic pelvic pain: care instructions ralammari Not available 10/24/2023 17:04:03 10/23/2024 [id number] hair loss from alopecia areata: care instructions ralammari Not available 10/23/2024 19:49:26 hot flashes during menopause: care instructions ralammari Not available 10/23/2024 15:21:19 Reason for Referral None Reported. Results Created Date Observation Date Name Description Value Unit Range Abnormal Flag Note LastModifiedBy Organization Detail LastModifiedTime 01/10/20 24 01/10/2024 ADVAN AILEEN BACTE RIAL VAGIN OSIS (BV), TMA adv bacterial vaginosis (bv), tma Negati ve negati ve Not Available [facility] [address] [place], [address] 01/11/2024 13:51:32 01/10/20 24 01/10/2024 ADVAN AILEEN KOKO DA VAGIN ITIS (CV)/ TRICH OMONA S VAGIN JHOAN (TV), TMA neva species Negati ve negati ve Not Available [facility] [address] [place], [place], [facility] 01/11/2024 13:51:33 01/10/20 24 01/10/2024 ADVAN AILEEN KOKO DA VAGIN ITIS (CV)/ TRICH OMONA S VAGIN JHOAN (TV), TMA neva glabrata Negati ve negati ve Not Available [facility] [address] [place], [address] 01/11/2024 13:51:33 01/10/20 24 01/10/2024 ADVAN AILEEN KOKO DA VAGIN ITIS (CV)/ TRICH OMONA S VAGIN JHOAN (TV), TMA trichomonas vaginalis (TV), tma Negati ve negati ve Not Available [facility] [address] [place], [address] 01/11/2024 13:51:33 09/18/20 24 09/18/2024 HPV MRNA E6/E7 HPV MRNA E6/E7 Negati ve negati ve APTIM A HPV assay detec ts 14 high risk HPV types (HPV 16,18 ,31,3 3,35, 39,45 ,51,5 2,56, 58,59 ,66,6 8). The assay is FDA appro milan for testi ng ThinP rep liqui d Pap vials but not FDA appro milan for detec ting HPV in SureP ath liqui d Pap speci mens. In-ho use valid ation has shown the assay can detec t all HPV types from this sourc e Not Available [facility] [address] [facility], [place], [address] 09/25/2024 06:45:55 09/18/2009/18/2024 THINP REP PAP TEST (IMAG ER), HPV SCREE N, REFLE X HPV 16,18 /45 report Report Final Gynec ologi ze Cytol ogy Repor t ----- ----- ----- ----- ----- ----- ----- ----- ----- ----- ----- ----- ThinP rep Pap Test, HPV Scree n, Refle x HPV Genot ype SPECI MEN ADEQU ACY: SATIS FACTO RY FOR EVALU ATION ; ENDOC ERVIC AL/TR ANSFO RMATI ON ZONE COMPO NENT ABSEN T/INS [facility] IENT . INTER PRETA TION: NEGAT ADARSH FOR INTRA EPITH ELIAL DENITA Hernández OR CLAUDIA ROSS . Elect alyssa Tlaley d: Epifanio Davalos [place] ([facility] ) Elect alyssa Talley d: Cierra Knapp, [place] ([facility] ) ----- ----- ----- ----- ----- ----- ----- ----- ----- ----- ----- ----- CLINI ZE INFOR ELVIN N: LMP: NG Clini ze Histo ry: RTN Biops y Date: NG Speci men Sourc e: Cervi x, Endoc ervix Previ ous Pap Date: 06/08 HPV RESUL TS: HPV mRNA E6/E7 [id number] Appro milan: 10/31 /24 Negat adarsh REF RANGE : Negat adarsh CPT Codes : 86237 ICD Codes : Z12.4 , Z11.5 1 Not Available [facility] [address] [facility], [place], [address] 09/25/2024 06:45:57 11/22/19 25 11/22/2024 MAMMO , scree humaira, tomos ynthe sis, bilat eral No observ ation record ed. [email or web address] [facility] [address] [facility], [place], [address], 12/26/2024 12:09:22 12/11/19 25 12/11/2024 MAMMO , scree humaira, tomos ynthe sis, bilat eral No observ ation record ed. [email or web address] [facility] [address] [facility], [place], [address], 01/07/2025 11:29:46 12/11/19 25 12/11/2024 US, breas t, bilat eral No observ ation record ed. [email or web address] [address], [place], [address], 01/07/2025 11:29:46 Result Notes None recorded. Problems Name Problem SNOMED Code Status Onset Date Resolution Date Notes Provider Name and Address Organization Details Recorded Time Disorder of thyroid gland 08913730 Active 2020 Lilian Hernandez [facility], [facility] 09:25:21 History of substance abuse 434435946 Active 2020 Lilian Hernandez null, [facility] 09:34:02 Postural orthostatic tachycardia syndrome 401314178 Active 2020 Lilian Hernandez null, [facility] 09:34:08 Autistic disorder 055976352 Active 2020 Lilian Hernandez [facility], [facility] 09:34:13 Mariusz-Danlos syndrome 179446029 Active 2020 Mary Ardon null, [place] - [facility] 1 11:11:46 Irritable bowel syndrome 06277965 Active 2020 Mary Paras Ardon null, [place] - [facility] 1 11:11:56 Rosa thyroiditis 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 Procedures Surgical History Date Name Laterality Status Provider Name and Address Organization Details Recorded Time 10/23/20 24 Telemedicine Visit completed Avinash Escobedo MD [address], [place], [address], [facility] 10/23/2024 15:23:37 09/16/20 21 Telemedicine Visit completed SANGEETA BINGHAM CNM [address] [facility], [place], [address], [facility] 09/16/2021 10:58:23 06/08/20 21 Date of Last Pap Smear completed Mary Ardon [facility] 06/08/2021 11:16:47 Imaging Results Imaging Date Name Status LastModified by [email or web address] Details LastModified Time 11/22/2024 MAMMO, screening, tomosynthesis, bilateral completed raegan [facility] [address] [facility], [place], [address], 12/26/2024 12:09:22 12/11/2024 MAMMO, screening, tomosynthesis, bilateral completed [email or web address] [facility] [address], [place], [address], 01/07/2025 11:29:46 12/11/2024 US, breast, bilateral completed [email or web address] [facility] [address], [place], [address], 01/07/2025 11:29:46 Procedure Notes None recorded. Medical Equipment None Reported. Allergies Allergen ID Allergen Name Allergen Category Reaction Reaction Severity Criticality Documentation Date Start Date Code Code System Note Provider Name and Address Organization Details Recorded Time [id number] amphetami ne medicatio n chest pain confusion other palpitati ons moderate moderate moderate severe Not available 03/26/2021 725 RxNorm Lilian Hernandez null, [facility] 09:24:43 5118536 Product containin g penicilli n (product) medicatio n hives severe Not available 03/26/2021 01690 8001 SNOMED Lilian Hernandez null, [facility] 09:24:43 0926247 Zoloft medicatio n other moderate Not available 03/26/2021 74194 RxNorm Lilian Hernandez null, [facility] 09:24:43 0084793 amoxicill in medicatio n hives severe Not available 03/26/2021 723 RxNorm Lilian Hernandez null, [facility] 09:24:43 9291024 Product containin g hydrogen/ potassium adenosine triphosph atase enzyme system inhibitor (product) medicatio n hives moderate Not available 03/26/2021 23382 5006 SNOMED Lilian Hernandez null, [facility] 09:24:43 3529326 wheat gluten extract food Not available Not available Not available 03/26/2021 52997 81 RxNorm Lilian Hernandez null, [facility] 09:24:43 8749153 Diflucan medicatio n rash moderate Not available 07/20/202166596 3 RxNorm Julianne Rachel null, [facility] 1 16:25:29 5136808 progester one medicatio n chest pain cough decreased blood pressure dizziness dry mouth palpitati ons ringing in ears moderate mild moderate severe moderate mild mild Not available 04/12/2023 8727 RxNorm Mini- pill Ruchisacha Borrero DO [address] [facility], [address], [place], [address] [place] [address] 3 16:24:07 5431005 Benadryl medicatio n palpitati ons moderate Not available 02/27/202478796 7 RxNorm Charleen Cruz null, [facility] 4 11:47:43 Medications Name Sig Start Date Stop Date Status Note LastModified by Organization Details LastModified Time [place] Thyroid 60 mg tablet TAKE 1 AND 1/2 TABLETS BY MOUTH DAILY 04/11 completed Not Available Not Available Not Available cromolyn 100 mg/5 mL oral concentrat e USE 2 AMP (200MG) BY MOUTH 4 TIMES A DAY TITRATE UP SLOWLY DIRECTED 07/08 completed Not Available Not Available Not Available promethazi ne-DM 6.25 mg-15 mg/5 mL oral syrup TAKE 5 ML BY MOUTH EVERY 4 TO 6 HOURS NEEDED FOR COUGH FOR 7 DAYS 07/08 completed Not Available Not Available Not Available prednisone 10 mg tablet TAKE 1 TABLET BY MOUTH TWICE DAILY - ONLY AFTER RECEIVING INSTRUCTI ONS FROM 09/15 completed Not Available Not Available Not Available ipratropiu m 0.5 mg-albuter ol 3 mg (2.5 mg base)/3 mL nebulizati on soln TAKE 3 ML (INHALATI ON) 4 TIMES PER DAY FOR 5 DAYS 09/15 completed Not Available Not Available Not Available ketoconazo le 2 % shampoo 08/18 completed Not Available Not Available Not Available azithromyc in 250 mg tablet PLEASE SEE ATTACHED FOR DETAILED DIRECTION S active Not Available Not Available No t Available fluconazol e 150 mg tablet Take 1 tablet by oral route as directed for 1 day. 08/10 completed Not Available Not Available Not Available clotrimazo le-betamet hasone 1 %-0.05 % lotion 08/18 completed Not Available Not Available Not Available Retin-A 0.1 % topical cream APPLY TO AFFECTED AREA AT NIGHT 07/11 completed Not Available Not Available Not Available ondansetro n HCl 4 mg tablet active Not Available Not Available Not Available prednisone 20 mg tablet TAKE 2 TABLETS BY MOUTH DAILY FOR 5 DAYS 07/08 completed Not Available Not Available Not Available estradiol 0.05 mg/24 hr semiweekly transderma l patch Apply by transderm al route for 84 days. 2023 active Not Available Not Available Not Avai lable sulfametho xazole 800 mg-trimeth oprim 160 mg tablet 08/18 completed Not Available Not Available Not Available olanzapine 2.5 mg tablet TAKE 1 TABLET BY MOUTH EVERY DAY AT NIGHT 07/08 completed Not Available Not Available Not Available liothyroni ne 5 mcg tablet TAKE 1/2 TABLET BY MOUTH HALF HOUR BEFORE BREAKFAST (E06.3) active Not Available Not Available No t Available TobraDex 0.3 %-0.1 % eye ointment APPLY A SMALL AMOUNT TO AFFECTED LIDS TWICE A DAY 01/09 completed Not Available Not Available Not Available ondansetro n 8 mg disintegra ting tablet TAKE 1 TABLET BY MOUTH THREE TIMES A DAY NEEDED FOR NAUSEA 07/08 completed Not Available Not Available Not Available ketorolac 10 mg tablet TAKE 1 TABLET BY MOUTH EVERY 6 HOURS NEEDED FOR PAIN active Not Available Not Available No t Available famotidine 20 mg tablet TAKE 1 TABLET ONCE DAILY active Not Available Not Available No t Available estradiol 0.025 mg/24 hr weekly transderma l patch Apply 1 patch every week by transderm al route. active Not Available Not Available No t Available lorazepam 0.5 mg tablet 10/22 completed Not Available Not Available Not Available desloratad ine 5 mg tablet TAKE 1 TABLET BY MOUTH 3 TIMES A DAY FOR ITCH active Not Available Not Available No t Available dexamethas one 2 mg tablet 08/18 completed Not Available Not Available Not Available erythromyc in 5 mg/gram (0.5 %) eye ointment APPLY A THIN LAYER TO LEFT EYE FOUR TIMES DAILY X 7 DAYS 07/08 completed Not Available Not Available Not Available tacrolimus 0.1 % topical ointment 08/18 completed Not Available Not Available Not Available neomycin-p olymyxin-d exameth 3.5 mg/mL-10,0 00 unit/mL-0. 1% eye drops INSTILL ONE DROP IN THE LEFT EYE THREE TIMES A DAY FOR A WEEK. SHAKE WELL 01/09 completed Not Available Not Available Not Available triamcinol one acetonide 0.1 % topical ointment APPLY 3 TIMES PER DAY FOR 7 DAYS 09/15 completed Not Available Not Available Not Available clotrimazo le-betamet hasone 1 %-0.05 % topical cream 08/18 completed Not Available Not Available Not Available albendazol e 200 mg tablet TAKE 2 TABLET (ORAL) EVERY 2 WEEKS TAKE 2 TABLETS TODAY AND 2 TABLETS IN TWO WEEKS ON 04/05 completed Not Available Not Available Not Available polymyxin B sulfate 10,000 unit-trime thoprim 1 mg/mL eye drops 08/18 completed Not Available Not Available Not Available montelukas t 10 mg tablet 08/18 completed Not Available Not Available Not Available ammonium lactate 12 % topical cream 08/18 completed Not Available Not Available Not Available mupirocin 2 % topical ointment 08/18 completed Not Available Not Available Not Available famotidine 40 mg/5 mL (8 mg/mL) oral suspension 08/18 completed Not Available Not Available Not Available neomycin 500 mg tablet 03/23 completed Not Available Not Available Not Available norethindr one (contracep tive) 0.35 mg tablet TAKE 1 TABLET BY MOUTH EVERY DAY 03/08 completed Not Available Not Available Not Available clobetasol 0.05 % scalp solution 08/18 completed Not Available Not Available Not Available ondansetro n 4 mg disintegra ting tablet DISSOLVE 1 TABLET BY MOUTH EVERY 8 HOURS FOR 2-3 DAYS 09/15 completed Not Available Not Available Not Available cefdinir 300 mg capsule TAKE 1 CAPSULE BY MOUTH TWICE A DAY FOR 10 DAYS 01/10 completed Not Available Not Available Not Available fluticason e propionate 50 mcg/actuat ion nasal spray,susp ension TAKE 2 (INTRANAS AL) DAILY 01/09 completed Not Available Not Available Not Available spironolac tone 50 mg tablet Take 1 tablet every day by oral route. active Not Available Not Available No t Available Ventolin HFA 90 mcg/actuat ion aerosol inhaler INHALE 2 PUFFS EVERY 4 HOURS NEEDED FOR WHEEZING OR SHORTNESS OF BREATH 07/08 completed Not Available Not Available Not Available ciclopirox 0.77 % topical gel active Not Available Not Available Not Available TobraDex 0.3 %-0.1 % eye drops,susp ension INSTILL ONE DROP IN THE LEFT EYE FOUR TIMES A DAY FOR A WEEK. SHAKE WELL 07/08 completed Not Available Not Available Not Available azelaic acid 15 % topical gel PLEASE SEE ATTACHED FOR DETAILED DIRECTION S 07/28 completed Not Available Not Available Not Available Junel FE 1.5/30 (28) 1.5 mg-30 mcg (21)/75 mg (7) tablet TAKE 1 TABLET BY MOUTH EVERY DAY active Not Available Not Available No t Available nitrofuran toin monohydrat e/macrocry stals 100 mg capsule TAKE 1 CAPSULE BY MOUTH TWICE A DAY FOR 7 DAYS 08/18 completed Not Available Not Available Not Available Vandazole 0.75 % (37.5 mg/5 gram) vaginal gel Insert 1 applicato rful every day by vaginal route at bedtime for 5 days. 06/08 completed Not Available Not Available Not Available naltrexone 05/05 completed Not Available Not Available Not Available aripiprazo le 2 mg tablet TAKE 1 TABLET BY MOUTH EVERY DAY DIRECTED 07/08 completed Not Available Not Available Not Available levocetiri zine 5 mg tablet TAKE 1 TABLET BY MOUTH ONCE DAILY NEEDED active Not Available Not Available No t Available Tirosint 50 mcg capsule TAKE 1 (ONE) CAPSULE BY MOUTH HALF HOUR BEFORE BREAKFAST 07/11 completed Not Available Not Available Not Available Tirosint 75 mcg capsule TAKE 1 (ONE) CAPSULE BY MOUTH HALF HOUR BEFORE BREAKFAST 07/08 completed Not Available Not Available Not Available Tirosint 88 mcg capsule TAKE 1 CAPSULE BY MOUTH HALF HOUR BEFORE BREAKFAST active Not Available Not Available No t Available Xifaxan 550 mg tablet TAKE 1 TABLET BY MOUTH 3 TIMES A DAY FOR 2 WEEKS 09/15 completed Not Available Not Available Not Available Lo Loestrin Fe 1 mg-10 mcg (24)/10 mcg (2) tablet TAKE 1 TABLET BY MOUTH EVERY DAY SKIP PLACEBO PILLS active Not Available Not Available No t Available Polina Allergy 180 mg tablet 08/18 completed Not Available Not Available Not Available liothyroni ne sod, micro (bulk) 07/11 completed Not Available Not Available Not Available Tri-Estary lla (28) 0.18 mg(7)/0.21 5 mg(7)/0.25 mg(7)-35 mcg tablet 08/18 completed Not Available Not Available Not Available Aubra 0.1 mg-20 mcg tablet Take 1 tablet every day by oral route. 07/12 completed pt wants to go back on Lo Lo Not Available Not Available Not Available Loc-Synala r 0.5 % (0.35 % base)-0.02 5 % topical cream TAKE 1 APPLICATI ON (TOPICAL) 2 TIMES PER DAY ( NEEDED - SKIN IRRITATIO N) FOR 14 DAYS 01/09 completed Not Available Not Available Not Available Libby (28) 3 mg-0.02 mg tablet TAKE 1 TABLET BY MOUTH EVERY DAY 07/12 completed Not Available Not Available Not Available up4 Probiotics Women's 5 billion cell-250 mg capsule 08/18 completed Not Available Not Available Not Available Pataday Once Daily Relief 0.7 % eye drops INSTILL 1 DROP IN (EYE) (EYES) ONCE A DAY 07/08 completed Not Available Not Available Not Available naltrexone 1.5 mg capsule active Not Available Not Available Not Available Slow Fe 137 mg (45 mg iron) tablet,ext ended release TAKE 1 TABLET BY MOUTH EVERY DAY active Not Available Not Available No t Available Vitals Date Recorded Body height Body mass index (BMI) Body weight Systolic blood pressure Diastolic blood pressure Provider Name and Address Organization Details Last Updated DateTime 10/24/2023 180.34 cm 21.1 kg/m2 19453.45 g 120 mm[Hg] 70 mm[Hg] Anne Marie Pelayo [place] [facility] 16:11:35 Date Recorded Body height Body mass index (BMI) Body weight Systolic blood pressure Diastolic blood pressure Provider Name and Address Organization Details Last Updated DateTime 01/10/2024 180.34 cm 20.9 kg/m2 62491.86 g 100 mm[Hg] 70 mm[Hg] Zehragaurang [facility] 09:18:01 Date Recorded Body height Provider Name an d Address Organization Details Last Updated DateTime 02/27/2024 180.34 cm Charleen Cruz [facility] 02/27/2024 11:47:38 Date Recorded Body height Body mass index (BMI) Body weight Systolic blood pressure Diastolic blood pressure Provider Name and Address Organization Details Last Updated DateTime 09/18/2024 180.34 cm 20.8 kg/m2 73088.26 g 110 mm[Hg] 70 mm[Hg] Zehra [facility] 15:35:20 Social History Question Answer Notes LastModified by Organizat ion Details LastModified Time Tobacco Smoking Status Former Smoker quit 2009 started back smoking for 6 months on and off 2022 [facility] 09:08:27 What Is Your Level Of Alcohol Consumption? None [email or web address] Information not available 01/10/2024 Concerns About Meeting Basic Needs (food, Housing, Heat, Etc)? Yes [email or web address] Information not available 01/10/2024 Education 12 [email or web address] Information n ot available 01/10/2024 What Is The Highest Grade Or Level Of School You Have Completed Or The Highest Degree You Have Received? FY06515-7 [email or web address] Information not available 09/18/2024 Do You Have Any Children? Yes Information not available 03/26/2021 Does Your Partner Physically Hurt You Or Threaten To Hurt You? No Information not available 03/26/2021 Has Your Partner Forced You To Have Sex Or Perform Sex Acts When You Did Not Want To? No Information not available 03/26/2021 Does Your Partner Insult, Scream At Or Talk Down To You? No Information not available 03/26/2021 Does Your Partner Control You Or Any Part Of Your Life? No Information not available 03/26/2021 Are You Afraid Of Your Partner? No Information not available 03/26/2021 Tobacco Type Cigarettes [email or web address] Information not available 08/20/2022 Drug Use? No Information no t available 03/26/2021 Do You Feel Safe At Home? Yes Information not available 03/26/2021 How Many Children Do You Have? 1 [email or web address] Information not available 01/10/2024 Are You Sexually Active? No [email or web address] Information not available 01/10/2024 General Stress Level High [email or web address] Information not available 01/10/2024 Do You Feel Stressed (tense, Restless, Nervous, Or Anxious, Or Unable To Sleep At Night)? [id number] [email or web address] Information not available 01/10/2024 Have You Recently Traveled Abroad? No Information not available 03/26/2021 Sex: Female Functional Status Question Answer Note LastModified by Organizat ion Details LastModified Time What is your exercise level? Occasional [email or web address] Information not available 09/18/2024 Mental Status None recorded. Family History Relationship Description Onset Age of this Age Resolved Age Notes LastModified by Organization Details LastModified Time Mother Depressive disorder pt. added direct ly (03/23) [email or web address] Not available 03/23/2021 13:16:35 Mother Malignant neoplasm of uterus pt. added direct ly (03/23) [email or web address] Not available 03/23/2021 13:17:39 Mother Mental disorder pt. added direct ly (03/23) [email or web address] Not available 03/23/2021 13:18:52 Mother Multiple sclerosis pt. added direct ly (03/23) [email or web address] Not available 03/23/2021 13:18:59 Father Depressive disorder pt. added direct ly (03/23) [email or web address] Not available 03/23/2021 13:16:35 Father Heart disease pt. added direct ly (03/23) [email or web address] Not available 03/23/2021 13:16:59 Unspecified Relation Gout pt. added direct ly (03/23) [email or web address] Not available 03/23/2021 13:16:51 Unspecified Relation Disorder of thyroid gland pt. added direct ly (03/23) [email or web address] Not available 03/23/2021 13:17:11 Unspecified Relation Mental disorder pt. added direct ly (03/23) [email or web address] Not available 03/23/2021 13:18:52 Sister Disorder of thyroid gland pt. added direct ly (03/23) [email or web address] Not available 03/23/2021 13:17:11 Sister Mental disorder pt. added direct ly (03/23) [email or web address] Not available 03/23/2021 13:18:52 Paternal Grandmother Malignant melanoma pt. added direct ly (03/23) [email or web address] Not available 03/23/2021 13:17:28 Paternal Grandmother Malignant tumor of breast pt. added direct ly (03/23) [email or web address] Not available 03/23/2021 13:17:52 Paternal Grandfather Malignant tumor of prostate pt. added direct ly (03/23) [email or web address] Not available 03/23/2021 13:18:05 Maternal Grandfather Malignant neoplastic disease pt. added direct ly (03/23) [email or web address] Not available 03/23/2021 13:18:14 Medical History Condition Response Anxiety Disorder Y Heart Problems Y Interstitial Cystitis Y Neurological Disorder Y Thyroid Problems Y Abuse/Domestic Violence N Depression Y Defects or Inherited Disease Y Psychiatric Illness Y Gynecological History Statement/Question Response Flow Heavy Date of LMP 06/17/2023 IPV Screen Done 08/20/2022 [facility]one Biopsy N Post Menopausal Bleeding N STIs/STDs PID N Cervical Cancer N History of Endometrial Biopsy? N BrCa gene tested? Y Ovarian Cancer N Breast Cancer N Bladder Problems N Abnormal Uterine Bleeding N Last HPV Result Negative Abnormal Pap N BrCa Positive N Infertility N Leep N HPV Vaccine N Duration of Flow (days) 6 Endometriosis Age [age] Menarche [age] Current Control Method Abstinence Age at First Child 26 Uterine Cancer N Current Control Method Oral Contra ceptives Frequency of Cycle (Q days) 28 Sexually Active? N Sexual Problems? Y Date of Last Pap Smear 06/08/2021 Pap Required? N Hormone Replacement Therapy N Obstetrics History GPAL:G 1 P 1 0 0 1 Type Value Full Term 1 Living 1 Total 1 Immunizations Vaccine Type Date Status Note Provider Nam e and Address Organization Details Recorded Time Td (adult), 5 Lf tetanus toxoid, preservative free, adsorbed 3 completed Maki Marx null, [place] - [facility] 07/11/2023 13:02:06 COVID-19, mRNA, LNP-S, PF, 30 mcg/0.3 mL dose 1 completed Not Available [facility] 01/10/2024 09:08:30 COVID-19, mRNA, LNP-S, PF, 30 mcg/0.3 mL dose 1 completed Mary Ardon null, [place] - [facility] 04/12/2023 16:09:38 Past Encounters Encounter ID Performer Location Encounter Start Date Encounter Closed Date Diagnosis/Indication Diagnosis SNOMED-CT Code Diagnosis ICD10 Code Diagnosis Note [id number] OBINNA SEO MD [facility] [address] [place] [address] 03/26/2021 09:20:41 03/26/2021 13:19:25 Dysmenorrhea 656546717 N94.6 [id number] SANGEETA BINGHAM CNM [facility] [address] [place] [address] 06/08/2021 10:57:48 06/08/2021 13:43:02 Gynecologic examination 03575932 Z01.419 Contracept ion care management 498154190 Z30.9 [id number] CHI GONZALES [address] [place] [address] 05/05/2021 10:45:37 05/05/2021 15:33:26 Venereal disease screening 406066058 Z11.3 Acute urin angel tract infection 195975878 N39.0 [id number] SANGEETA BINGHAM CNM [facility] [address] [place] [address] 2021 10:27:23 2021 10:54:09 Candidiasis of vagina 21330490 B37.3 [id number] SANGEETA BINGHAM CNM [facility] [address] [place] [address] 09/16/2021 08:44:24 09/16/2021 11:35:56 [id number] CHI GONZALES [address] [place] [address] 03/08/2022 10:33:47 03/09/2022 13:24:18 Contraception care management 283562139 Z30.9 [id number] MIGUEL ÁNGEL ORTIZ MD [facility] [address] [place] [address] 07/28/2022 09:46:47 07/30/2022 09:08:22 [id number] SANGEETA OTILIACHI VICENTE [facility] [address] [place] [address] 08/20/2022 13:54:07 08/20/2022 15:23:12 Gynecologic examination 05694261 Z01.419 Pain in pelvis 50655703 R10.2 [id number] Ruchi Borrero DO [address] [place] [address] 04/12/2023 15:57:06 04/14/2023 13:21:41 Menorrhagia 757982409 N92.0 Dyspareunia 85101180 N94 .10 [id number] Ruchi Borrero DO [facility] [address] [place] [address] 07/11/2023 12:53:25 07/12/2023 08:35:09 Dysmenorrhea 967953215 N94.6 [id number] Avinash Escobedo MD [address] [place] [address] 08/02/2023 11:26:29 08/02/2023 15:14:29 Pain in pelvis 85615345 R10.2 Dysmenorrhea 468710949 N 94.6 Chronic pe lvic pain of female 178335014 R10.2 Muscle pain 93969531 M79 .10 Migraine 44718732 G43.90 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 [id number] Avinash Escobedo MD [facility] [address] [place] [address] 08/09/2023 15:20:04 08/09/2023 16:19:34 Pain in pelvis 16002156 R10.2 [id number] MD SHASHANK Brooks1 [address] [place] [address] 10/24/2023 16:08:32 10/24/2023 16:35:16 Chronic pelvic pain of female 409733995 R10.2 [id number] Avinash Escobedo MD MAN[facility] [address] [place] [address] 01/10/2024 09:07:04 01/10/2024 13:41:29 Vaginal irritation 998498813 N89.8 Pruritus of vagina 12436 003 L29.3 [id number] NICHOLAS PADILLA MD MAN[facility] [address] [place] [address] 02/27/2024 11:42:11 02/27/2024 12:10:19 Cyst of vulva 26414238 N90.7 Inclusion cyst that is nearly completely resolved at this point. Continued conservati ve measures seem the most appropriat e treatment. She is encouraged to use the hot compresses and expression as needed. With exacerbati on she can return. [id number] Avinash Escobedo MD [facility] [address] [facility] [place] [address] 09/18/2024 15:22:14 09/18/2024 16:37:18 Screening for malignant neoplasm of cervix 486802307 Z12.4 Z11.51 Screening mammography 24 960789 Z12.31 Gynecologi c examination 64086711 Z01.419 Contracept ion care management 434574557 Z30.9 [id number] Avinash Escobedo MD [facility] [address] [place] [address] 10/23/2024 15:08:59 10/23/2024 16:26:28 Menopausal flushing 459641066 N95.1 Acne 94144287 L70.9 Loss of hair 459986374 L 65.9 Health Concerns Section Related Observation LastModified by Organization Detai ls LastModified Time None Recorded Concern Status LastModified by Organization Details LastModified Time None Recorded Advance Directives Directive None Recorded Payers Encounter Date Sequence Insurance Name Policy Number Policy Burden Covered Member ID Burden Member ID Guarantor Name 10/24/2023 2 [place] Lizette Terry [id number] Lizette Terry 01/10/2024 2 [place] Lizette Martinezmstein [id number] Lizette Toro Zamstein 01/10/2024 1 [facility] (MEDICARE REPLACEMENT/A DVANTAGE - PPO) [id number] Lizette Martinezmstein [id number] Lizette Toro Zamstein 02/27/2024 2 [place] Lizette Martinezmstein [id number] Lizette Toro Zamstein 02/27/2024 1 [facility] (MEDICARE REPLACEMENT/A DVANTAGE - PPO) [id number] Lizette Martinezmstein [id number] Lizette Toro Zamstein 09/18/2024 2 [place] Lizette Toro Zamstein [id number] Lizette Toro Zamstein 09/18/2024 1 [facility] (MEDICARE REPLACEMENT/A DVANTAGE - PPO) [id number] Lizette Martinezmstein [id number] Lizette Toro Zamstein 10/23/2024 2 [place] Lizette Martinezmstein [id number] Lizette Toro Zamstein 10/23/2024 1 [facility] (MEDICARE REPLACEMENT/A DVANTAGE - PPO) [id number] Lizette Martinezmstein [id number] Lizette Mayotein Notes Date Note Type Note Provider Name and Address Organization Details Recorded Time 10/24/2023 text/html Patient is a medardo fernando 37-year-old here for follow-up for chronic pelvic pain. For full history refer to initial consult note. Currently patient is trialing low Loestrin. Noticed some improvement of her symptoms on continuous regimen but occasionally will have flareup of lower pelvic cramping even when not bleeding. Reports that the pain is tolerable but she strives to make it better. Patient has been researching certain supplements that may help with endometriosis. Was diagnosed with anemia and was prescribed iron which she feels is hard to tolerate orally. Avinash Escobedo MD [address] [place] [address], [address] Floor, [place], [address], [place] - [facility] 10/24/2023 17:04:06 01/10/2024 text/html Patient is a medardo fernando 38-year-old here for evaluation of vaginal and vulvar burning and itching after receiving a course of antibiotics as well as a cyst that developed on her mons pubis and since she had drained it by expressing it. Avinash Escobedo MD [address] [place] [address], [phone], [facility] 01/10/2024 10:33:18 02/27/2024 text/html Patient is a medardo larseny 38-year-old here for evaluation of a cyst that developed on her mons pubis, really near the crura of the clitoral finley, which she has been able to drain with hot compresses and expression. Despite these efforts, and the use of antibiotics previously, this does not seem to be resolving completely. NICHOLAS MEIER MD [address] [place] [address], [phone], [facility] 02/27/2024 12:06:59 09/18/2024 text/html Patient is a medardo fernando 39-year-old here for annual visit. Patient overall is feeling fatigued and stressed. She is getting allergy injections. She also has history of Mariusz-Danlos and Rosa thyroiditis. Patient is experiencing hair loss as well as night sweats. She is on lo Loestrin. Avinash Escobedo MD [address] [place] [address], [phone], [facility] 09/18/2024 15:56:28 10/23/2024 text/html Patient is a medardo fernando 39-year-old scheduled for telemedicine visit to discuss results of increasing her control pill dose. Last visit on her annual patient reported symptoms of hot flashes, night sweats and hair loss. We discussed that this could result from low estrogen state due to use of low Loestrin. Patient was increased to the 30 mcg pill and reports although hot flashes and night sweats were better she started to experience other side effects including constipation, bloating, increase in blood pressure and could not tolerated and went back to the low-dose pill. Patient would like ideas on ways to replace estrogen more precisely. Patient also interesting a trial of spironolactone given her iron loss, acne and blood pressure trending higher. Avinash Escobedo MD [address] [place] [address], [address] [place] [address], [phone], [place] - [facility] 10/23/2024 19:49:50 OBGyn Episode Ob Episode Information Episode Created Date Number of Fetuses Patient Bloodtype Patient rh Status Prepregnancy Weight lbs Domestic Partner Domestic Partner Phone Father Name Hydrodynamics Professor Status 03/26/20 21 1 CLOSED Fetus Data First Name Last Name Admitted to NICU Weight (g) Sex Living Outcome Pediatric Complications Fetus ID Race Codes Race Delivery Type M [id number] Ovidio Calculation Initial Ovidio Date Initial Exam Date Initial Exam Provider Initial Ultrasound Date Last Menstrual Period Date Ultra Sound Weeks Gestation 0 Eighteen To Twenty Week Ovidio Update Ultra Sound Date Fundal Height At Umbil Quickening Date Ultra Sound Latest Weeks Gestation Final Ovidio Confirmed By Final Ovidio Confirmed Date Final Ovidio Date Ultra Sound Latest Days Gestation 0 0 Menstrual History Last Menstrual Date Menses Monthly On Bcp Conception Prior Menses Frequency Hcg Plus Date Menarche Onset Age Delivery Information Delivery Date Delivery Type Labor Anesthesia Weeks Gestation Incision Type Labor Labor Length Hrs Delivered By Post Complications Tubal Sterilization Discharge Date Comments 2 vaginal Discharge Information Feeding Method Contraceptive Method Maternal HG B and HCT Levels
--- OUTSIDE RECORDS SUMMARY | 2025-01-28 11:21 | XMS_ITS | Clinical Summary ---
Author Organization [facility]ly [facility] Address [address] [place] [address] Care Team Providers Care Customer Sales Advisor Name Role Phone Unknown, Primary Care Provider Unavailabl e Immunizations Name Administration Dates Next Due Covid-19 (Pfizer) Dilution Required 03/27/2021 Social History Tobacco Use Types Packs/Day Years Used Date Smoking Tobacco: Never Assessed Sex and Gender Information Value Date Recorded Sex Assigned at Female 04/03/2021 11:49 AM EDT Gender Identity Not on file Sexual Orientation Not on file Job Start Date Occupation Industry Not on file Not on file Not on file Plan of Treatment Health Maintenance Due Date Last Done Comments Hepatitis B Vaccines (1 of 3 - 3-dose series) 1984 Hepatitis C Screening 1984 Depression Screening 1996 Preventative Health Evaluation 2002 Cervical Cancer Screening (Pap Smear) 2005 COVID-19 Vaccine (2023-2 5 season) 2024 03/27/2021 Influenza Vaccine (#1) 2024 9, 09/25/2014, 12/12/2012 DTap / Tdap / Td (3 - Td or Tdap) 04/25/2033 04/25/2023, 12/12/2012 Pneumococcal Vaccine Aged Out No long er eligible based on patient's age to complete this topic RSV Ped < 20 months Aged Out No longe r eligible based on patient's age to complete this topic Care Teams Customer Sales Advisor Relationship Specialty Start Date End Date Unknown, PCP - General 10/18/23
--- OUTSIDE RECORDS SUMMARY | 2025-01-28 11:21 | XMS_ITS | Clinical Summary ---
Author Organization [facility] Address [address] [place] [address] Care Team Providers Care Admissions Rn Name Role Phone Unavailable Primary Care Provider Unavailabl e Source Comments PLEASE NOTE, if this patient is a minor, it may be UNLAWFUL to discuss sensitive information that is contained in these records (such as FAMILY PLANNING, MENTAL HEALTH or SUBSTANCE ABUSE) with the minor patient's parent or other person without the patient's specific authorization.[facility] Social History Tobacco Use Types Packs/Day Years Used Date Smoking Tobacco: Never Assessed Comments Unknown Sex and Gender Information Value Date Recorded Sex Assigned at Female 06/18/2021 8:16 AM PDT Legal Sex Female 11:34 AM PDT Gender Identity Female 06/18/2021 8:16 AM PDT Sexual Orientation Straight 06/18/2021 8: 16 AM PDT Plan of Treatment Not on file Insurance [place] MEDICA[place] Member Subscriber Plan / Payer (Ef fective 2021-Present) Name:Lizette Terry Relation to Subscriber:Self Name:Lizette Terry Payer ID:[id number] Group ID:Not on file Type:Medicaid Address: [address] [place] [address]
--- OUTSIDE RECORDS SUMMARY | 2025-01-28 11:21 | XMS_ITS | Encounter Summary ---
Author Organization [facility] Address [address] [place] [address] Care Team Providers Care Jetting Machine Operator Name Role Phone Pcp, Samara Primary Care Provider Sol Hills DO Primary Care Provider Reason for Visit * Reason Comments Other Encounter Details Date Type Department Care Team ([facility] st Contact Info) Description 11/27/2024 Telephone [facility] Neurology Ophthalmology [place] [address] [phone] Soledad Knight DO 85 [facility] [address] [place] [id number] Other Social History Tobacco Use Types Packs/Day Years Used Date Smoking Tobacco: Never Smokeless Tobacco: Never Alcohol Use Standard Drinks/Week Comments Not Currently 0 (1 standard drink = 0.6 oz pur e alcohol) Sex and Gender Information Value Date Recorded Sex Assigned at Not on file Gender Identity Not on file Sexual Orientation Not on file documented as of this encounter Plan of Treatment Not on file documented as of this encounter Visit Diagnoses Not on filedocumented in this encounter Care Teams Jetting Machine Operator Relationship Specialty Start Date End Date Pcp, No PCP - General General Medicine 09/06/21 11/27/24 Sol Gonzalez DO [address] [address] PCP - General Family Medicine 11/28/24 documented as of this encounter
--- OUTSIDE RECORDS SUMMARY | 2025-01-28 11:21 | XMS_ITS | Clinical Summary ---
Author Organization [facility] Address [address] [place] [address] Care Team Providers Care Optical Scientist Name Role Phone Sol Gonzalez DO Primary Care Provider [phone] Allergies Active Allergy Reactions Criticality Noted Date Comments Amoxicillin Unknown/Patient and Family Unable to Define Medium 10/05/2021 Amphetamine Unknown/Patient and Family Unable to Define Medium 11/01/2015 Dexlansoprazole Unknown/Patient and Family Unable to Define Medium 07/21/2016 Esomeprazole Unknown/Patient and Family Unable to Define Medium 07/21/2016 Lansoprazole Unknown/Patient and Family Unable to Define Medium 11/01/2015 Latex Unknown/Patient and Family Unable to Define Medium 11/01/2015 Penicillin G Rash/Dermatitis Low 11/01/2015 Serotonin Unknown/Patient and Family Unable to Define Medium 11/01/2015 All SSRIs Sertraline Unknown/Patient and Family Unable to Define Medium 07/21/2016 Medications Medication Sig Dispensed Refills Start Date End Date Status clotrimazole-betameth asone (LOTRISONE) cream 2021 Active Lo Loestrin Fe 1 MG-10 MCG / 10 MCG tablet 08/27/2021 Active levocetirizine (XYZAL) 5 MG tablet 09/07/2021 Activ e famotidine (PEPCID) 20 MG tablet 09/21/2021 Active azelaic Acid (FINACEA) 15 % external gel massage a thin film of azelaic acid cream into the affected area twice daily, in the morning and evening. 04/16/2021 Active fexofenadine (GORDO) 180 MG tablet Take 180 mg by mouth. 11/10/2021 Active Melatonin 1 MG/4ML Liquid melatonin 1 mg every night as needed Active naltrexone (REVIA) 50 MG tablet Take 4 mg by mouth. Active norethindrone (MICRONOR) 0.35 MG tablet Take 0.35 mg by mouth. 10/09/2021 Active tretinoin (RETIN-A) 0.05 % cream Apply topically nightly. 04/16/2021 Active albuterol (PROVENTIL HFA; VENTOLIN HFA) 108 (90 Base) MCG/ACT inhalerIndications:Vi ral URI with cough,Mild intermittent reactive airway disease with acute exacerbation Inhale 2 puffs every 4 (four) hours as needed for wheezing or shortness of breath. 1 each 09/21/2022 Active predniSONE (DELTASONE) 20 MG tabletIndications:Vir al URI with cough,Mild intermittent reactive airway disease with acute exacerbation Take 2 tablets (40 mg total) by mouth daily. 10 tablet 09/21/2022 Active Tirosint 88 MCG Cap TAKE 1 (ONE) CAPSULE BY MOUTH HALF HOUR BEFORE BREAKFAST 04/09/2024 Active liothyronine (CYTOMEL) 5 MCG tablet TAKE 1/2 TABLET BY MOUTH HALF HOUR BEFORE BREAKFAST (E06.3) 04/18/2024 Active Active Problems Problem Noted Date Diagnosed Date Dysphonia 07/25/2016 Overview (01/18/2022): Last Assessment & Plan: Clearing, cough, globus assoiated with dysphonia, mostly MTD Significant MTD with extralryngeal/neck muscle use Dexilant works best for LPR sxs but insurance doesn't cover Recommend: Voice rx with Myriam OTC PPI Precautions - book recommended LPRD (laryngopharyngeal reflux disease) 07/25/20 16 Overview (01/18/2022): Clearing, cough, globus assoiated with dysphonia, mostly MTD Significant MTD with extralryngeal/neck muscle use Dexilant works best for LPR sxs but insurance doesn't cover Recommend: Voice rx with Myriam OTC PPI Precautions - book recommended Hypothyroidism 01/15/2006 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 Asthma 12/09/2005 Depressive disorder 12/09/2005 Dysphagia 12/09/2005 Irritable colon 09/30/2003 Encounters Date Type Department Care Team Description 12/11/2024 1:46 PM EST - 12/11/2024 11:59 PM EST Hospital Encounter [facility] [address] [place] [address] Avinash Escobedo MD Heterogeneously dense tissue of both breasts on mammography; Breast density; Breast asymmetry Discharge Disposition: Home or Self Care 12/11/2024 1:00 PM EST - 12/11/2024 1:45 PM EST Hospital Encounter [facility] [address] [place] [address] Avinash Escobedo MD Breast density; Breast asymmetry Discharge Disposition: Home or Self Care 12/11/2024 Travel 11/27/2024 Telephone [facility] Neurology Ophthalmology [address] [place] [phone] Soledad Knight DO Other 11/22/2024 10:53 AM EST - 11/22/2024 11:59 PM EST Hospital Encounter [facility] [address] [place] [phone] Avinash Escobedo MD Encounter for screening mammogram for malignant neoplasm of breast Discharge Disposition: Home or Self Care 11/22/2024 Travel 11/22/2024 Documentation [facility] Radiology Avinash Escobedo MD 11/02/2024 Transcribe Orders [facility] Neurology Ophthalmology [address] [place] [phone] Sol Gonzalez DO Visual disturbance (Primary Dx); External ophthalmoplegia, unspecified laterality 10/30/2024 Transcribe Orders [facility] Neuroscience [facility] [address] [place] [address] [place] [phone] Sol Gonzalez DO Neck pain (Primary Dx) from Last 3 Months Social History Tobacco Use Types Packs/Day Years [...] Sign Reading Time Taken Comments Blood Pressure 102/75 04/26/2024 10:56 AM EDT Pulse 88 04/26/2024 10:56 AM EDT Temperature 37.1 ??C (98.8 ??F) 04/26/2024 10:56 AM E DT Respiratory Rate 18 04/26/2024 10:56 AM EDT Oxygen Saturation 98% 04/26/2024 10:56 AM EDT Inhaled Oxygen Concentration - - Weight 63.5 kg (140 lb) 10/05/2021 2:15 PM EST Height 180.3 cm (5' 11 ) 10/05/2021 2:15 PM EST Body Mass Index 19.53 10/05/2021 2:15 PM EST Plan of Treatment Health Maintenance Due Date Last Done Comments DTaP/Tdap/Td Vaccines (1 - Tdap) 2003 Hepatitis B Vaccines (1 of 3 - 19+ 3-dose series) 2003 Pneumococcal Vaccine: Pediatric (0-5 Years) and At-Risk Patients (6 to 49 Years) (1 of 2 - PCV) 2003 Influenza Vaccine 06/21/2024 08/27/2019 COVID-19 Vaccine ( - 2023-2 5 season) 2024 04/30/2021, 03/27/2021 Mammogram 11/22/2026 11/22/2024 Pap Smear (Ages 21-65) 09/18/2027 4, 06/08/2021 HIV Screening Completed 05/05/2021 Hepatitis C Virus Screening Completed 05/05/2021 HPV Vaccines Aged Out No longer eligi ble based on patient's age to complete this topic Procedures Procedure Name Priority Date/Time Associated Diagnosis Comments US BREAST DIAGNOSTIC COMPLETE-BILATERAL Routine 12/11/2024 2:34 PM EST Heterogeneously dense tissue of both breasts on mammography Breast density Breast asymmetry MM MAMMO DIAGNOSTIC W/ TOMOSYNTHESIS-RIGHT Routine 12/11/2024 1:45 PM EST Breast density Breast asymmetry MM MAMMO SCREENING W/ TOMOSYNTHESIS BILATERAL Routine 11/22/2024 11:15 AM EST Encounter for screening mammogram for malignant neoplasm of breast THINPREP PAP(POLITICAL DIRECTOR) HPV SCR RFX HPV 16,18/45 Routine 09/18/2024 12:00 AM EDT HIV 1/2 AG/AB CMIA REFLEX TO CONFIRMATION Routine 05/05/2021 11:28 AM EDT HEPATITIS C VIRUS (HCV) ANTIBODY Routine 05/05/2021 11:28 AM EDT from Last 3 Months or Most Recently Relevant to Health Maintenance Results * US Breast diagnostic complete-Bilateral (12/11/2024 2:34 PM EST) Anatomical Region Laterality Modality Breast Bilateral Ultrasound 12/11/2024 1:44 PM EST Impressions 12/11/2024 2:48 PM EST Right breast asymmetry with a sonographic correlate of a probably benign cyst. Six-month follow-up diagnostic ultrasound is recommended. ASSESSMENT: ?? BI-RADS 3 - Probably benign. BILATERAL DIAGNOSTIC COMPLETE BREAST ULTRASOUND COMPARISON: None. TECHNIQUE: Targeted right and bilateral whole breast ultrasound was performed. FINDINGS: Right breast: At 12:00, 3 cm from the nipple, there is a hypoechoic mass identified which measures 0.4 x 0.4 x 0.6 cm. This is likely the sonographic correlate to the 6 mm mammographic asymmetry described above. There is no internal vascularity. Finding likely represents a cyst and is probably benign. Also at the 12:00 axis, 3 cm from the nipple, there is a second smaller hypoechoic mass which measures 0.5 x 0.5 x 0.4 cm. There is no internal vascularity. There is suggestion of posterior through transmission. Finding likely represents a cyst and is probably benign. At 7:00, 1 cm from the nipple, there is a hypoechoic structure which measures 0.9 x 0.8 x 0.4 cm. There is no internal vascularity. Finding may represent a cyst cluster and is probably benign. No axillary lymphadenopathy. Left breast: No suspicious sonographic finding. No axillary lymphadenopathy. IMPRESSION: Probably benign findings of the right breast. ASSESSMENT: ?? BI-RADS 3 - Probably benign. OVERALL ASSESSMENT: BI-RADS 3 - Probably benign. RECOMMENDATION: Six-month follow-up diagnostic right breast ultrasound. Our office contacts patients directly to arrange additional mammographic views, supplemental ultrasounds, and short interval mammographic follow-up. Narrative 12/11/2024 2:48 PM EST RIGHT DIAGNOSTIC MAMMOGRAM CLINICAL INFORMATION: Diagnostic evaluation of right breast asymmetry detected on screening mammogram. COMPARISON: Prior mammogram dated 11/22/2024. TECHNIQUE: Right unilateral full field digital mammography was performed including spot compression CC, and full field ML views. Right digital breast tomosynthesis was performed. The exam was interpreted using computer-aided detection (CAD). BREAST DENSITY: C: The breast parenchyma is heterogeneously dense, which may obscure small masses. 50-75% fibroglandular tissue. FINDINGS: Additional views of the right breast obtained. The previously described 6 mm ovoid circumscribed equal density asymmetry in the central posterior right breast, seen only on the CC view, persists on spot compression. Additionally, a correlate is seen on the full field ML view, located superior to the nipple. This is therefore likely located along the 12:00 axis. A sonographic correlate of a probably benign cyst is identified on today's ultrasound. Avinash Escobedo MD IM US ORDERABLES * MM Breast tomosynthesis diagnostic-Right (12/11/2024 1:45 PM EST) Anatomical Region Laterality Modality Breast Right Mammography 12/11/2024 1:44 PM EST Impressions 12/11/2024 2:48 PM EST Right breast asymmetry with a sonographic correlate of a probably benign cyst. Six-month follow-up diagnostic ultrasound is recommended. ASSESSMENT: ?? BI-RADS 3 - Probably benign. BILATERAL DIAGNOSTIC COMPLETE BREAST ULTRASOUND COMPARISON: None. TECHNIQUE: Targeted right and bilateral whole breast ultrasound was performed. FINDINGS: Right breast: At 12:00, 3 cm from the nipple, there is a hypoechoic mass identified which measures 0.4 x 0.4 x 0.6 cm. This is likely the sonographic correlate to the 6 mm mammographic asymmetry described above. There is no internal vascularity. Finding likely represents a cyst and is probably benign. Also at the 12:00 axis, 3 cm from the nipple, there is a second smaller hypoechoic mass which measures 0.5 x 0.5 x 0.4 cm. There is no internal vascularity. There is suggestion of posterior through transmission. Finding likely represents a cyst and is probably benign. At 7:00, 1 cm from the nipple, there is a hypoechoic structure which measures 0.9 x 0.8 x 0.4 cm. There is no internal vascularity. Finding may represent a cyst cluster and is probably benign. No axillary lymphadenopathy. Left breast: No suspicious sonographic finding. No axillary lymphadenopathy. IMPRESSION: Probably benign findings of the right breast. ASSESSMENT: ?? BI-RADS 3 - Probably benign. OVERALL ASSESSMENT: BI-RADS 3 - Probably benign. RECOMMENDATION: Six-month follow-up diagnostic right breast ultrasound. Our office contacts patients directly to arrange additional mammographic views, supplemental ultrasounds, and short interval mammographic follow-up. Narrative 12/11/2024 2:48 PM EST RIGHT DIAGNOSTIC MAMMOGRAM CLINICAL INFORMATION: Diagnostic evaluation of right breast asymmetry detected on screening mammogram. COMPARISON: Prior mammogram dated 11/22/2024. TECHNIQUE: Right unilateral full field digital mammography was performed including spot compression CC, and full field ML views. Right digital breast tomosynthesis was performed. The exam was interpreted using computer-aided detection (CAD). BREAST DENSITY: C: The breast parenchyma is heterogeneously dense, which may obscure small masses. 50-75% fibroglandular tissue. FINDINGS: Additional views of the right breast obtained. The previously described 6 mm ovoid circumscribed equal density asymmetry in the central posterior right breast, seen only on the CC view, persists on spot compression. Additionally, a correlate is seen on the full field ML view, located superior to the nipple. This is therefore likely located along the 12:00 axis. A sonographic correlate of a probably benign cyst is identified on today's ultrasound. Avinash Escobedo MD IMG MAMMOGRAPHY ORDE RINKU * (ABNORMAL) MM Breast tomosynthesis screening-Bilateral (11/22/2024 11:15 AM EST) Anatomical Region Laterality Modality Breast Bilateral Mammography 11/22/2024 11:2 1 AM EST Impressions 11/22/2024 11:23 AM EST 1. Subcentimeter central posterior right breast asymmetry on the cc views only for which further evaluation with spot compression and true lateral views and possible targeted ultrasound are recommended. The patient will be recalled for further evaluation. ?? 2. Dense breasts. Consider screening sonography. ?? BI-RADS CATEGORY 0: INCOMPLETE - NEED ADDITIONAL IMAGING EVALUATION AND/OR PRIOR MAMMOGRAMS FOR COMPARISON A Tyrer-Cuzick breast cancer risk assessment is performed for eligible patients (females under 85 years of age with no personal history of breast cancer).??As part of a risk assessment, this patient was provided a questionnaire to assess her personal and family history of cancer. The calculated risk assessment is based on the information provided by the patient and interactions with the questionnaire. Assessment is not intended to be a substitute for professional health care advice, diagnosis, or treatment. Patients who meet National Comprehensive Cancer Network (NCCN) criteria for genetic testing will have the option to complete testing for hereditary cancer at this appointment. Our office contacts patients directly to arrange additional mammographic views, supplemental ultrasounds, and short interval mammographic follow-up. Narrative 11/22/2024 11:23 AM EST MM MAMMO SCREENING W/ TOMOSYNTHESIS BILATERAL: 11/22/2024 10:57 AM CLINICAL HISTORY: Screening Mollyer-Cuzick Risk Assessment: ??18.1 % ?? Intermediate risk of developing breast cancer in your lifetime. According to the [employer] additional screening with contrasted enhanced mammography or breast MRI may be appropriate after discussion with your provider. TECHNIQUE: Digital 2-D and tomosynthesis views were obtained. ??Computer aided detection performed. ?? COMPARISON: None FINDINGS: The mammary parenchyma is heterogeneously dense, which may obscure small masses. 6 mm ovoid circumscribed equal density asymmetry in the central posterior right breast on the cc view only. No associated distortion or suspicious calcification. Benign dermal calcification in the left breast Avinash Escobedo MD IMG MAMMOGRAPHY [facility] * ThinPrep Pap(Planning And Analysis Manager) HPV Scr Rfx HPV 16,18/45 (09/18/2024 12:00 AM EDT) Report Report [facility] Comment: Final Gynecological Cytology Report ThinPrep Pap Test, HPV Screen, Reflex HPV Genotype SPECIMEN ADEQUACY: SATISFACTORY FOR EVALUATION; ENDOCERVICAL/TRANSFORMATION ZONE COMPONENT ABSENT/INSUFFICIENT . INTERPRETATION: NEGATIVE FOR INTRAEPITHELIAL LESION OR MALIGNANCY. Electronically Signed: ??Epifanio Navarrete ??CT (ASCP) Electronically Signed: ??Cierra Bruno, [place] (ASCP) CLINICAL INFORMATION: LMP: NG Clinical History: ??RTN Biopsy Date: ??NG Specimen Source: ??Cervix, Endocervix Previous Pap Date: ??06/08/2021 HPV RESULTS: HPV mRNA E6/E7 ?? [id number] ?? Approved: 09/20/24 Negative ? REF RANGE: Negative CPT Codes: 19781 ICD Codes: Z12.4, Z11.51 09/18/2024 09/19/2024 3:3 1 PM EDT Avinash Escobedo MD LAB AMB PATH/CYTO OR DERABLES [facility] [address] [place], [place] * HIV 1/2 Ag/Ab CMIA Reflex to Confirmation (05/05/2021 11:28 AM EDT) HIV Ag/Ab, 4th Gen Non-Reacti ve Non-Reacti ve [facility] Comment: Results show no evidence of infection by HIV 1/2. If clinically indicated, repeat CMIA or test by nucleic acid amplification. Other 05/05/2021 11:2 8 AM EDT 05/05/2021 10:05 PM EDT Narrative [facility] - 05/06/2021 11:57 AM EDT FASTING:NO Ghostg CNM LAB BLOOD ORDERABLES [facility] [address] [place], [place] * Hepatitis C Virus (HCV) Antibody (05/05/2021 11:28 AM EDT) Hepatitis C Antibody 0.17 Non-Reacti ve Non-Reacti ve S/CO [facility] Other 05/05/2021 11:2 8 AM EDT 05/05/2021 10:[address] [facility] - 05/06/2021 12:00 PM EDT FASTING:NO Kashif Liebig CNM LAB BLOOD ORDERABLES Performing Organization Address City/[facility] Co de Phone Number [facility] [address] [place], [place] from Last 3 Months or Most Recently Relevant to Health Maintenance Care Teams Optical Scientist Relationship Specialty Start Date End Date Sol Gonzalez DO [address] [place] [id number] PCP - General Family Medicine 11/28/24
--- OUTSIDE RECORDS SUMMARY | 2025-01-28 11:21 | XMS_ITS | Encounter Summary ---
Author Organization [facility] Address [address] [place] [address] Care Team Providers Care Quality Analyst/Technical Writer Name Role Phone Samara Smith Primary Care Provider Sol Hills DO Primary Care Provider [phone] Encounter Details Date Type Department Care Team (Late st Contact Info) Description 11/22/2024 Documentation [facility] Radiology Avinash Escobedo MD [address] [place] [phone] Social History Tobacco Use Types Packs/Day Years [...] on filedocumented in this encounter Care Teams Quality Analyst/Technical Writer Relationship Specialty Start Date End Date PcpSamara PCP - General General Medicine 09/06/21 11/27/24 Sol Gonzalez DO [address] [facility] [address] [place] [address] PCP - General Family Medicine 11/28/24 documented as of this encounter
--- OUTSIDE RECORDS SUMMARY | 2025-01-28 11:22 | XMS_ITS | Encounter Summary ---
Author Organization [facility] Address [address] [place] [address] Care Team Providers Care Coiled Coil Inspector Name Role Phone Alisha Vincent Primary Care Provider [phone] Demi Rachel MD Unavailable [phone] Alisha Vincent Unavailable [phone] Deng Alexis Unavailable [phone] Encounter Details Date Type Department Care Team (Late st Contact Info) Description 05/25/2023 Orders Only [facility] Department of Pulmonary Function Testing [address] [place] [address] Sandra Simon, TANK WASHER [address] [place] [address] Dyspnea, unspecified type Social History Tobacco Use Types Packs/Day Years Used Date Smoking Tobacco: Former Smokeless Tobacco: Never Alcohol Use Standard Drinks/Week Comments Not Currently 0 (1 standard drink = 0.6 oz pur e alcohol) Comments No Sex and Gender Information Value Date Recorded Sex Assigned at Not on file Legal Sex Female 4:44 AM EST Gender Identity Not on file Sexual Orientation Not on file COVID-19 Exposure Response Date Recorded In the last 10 days, have yo u been in contact with someone who was confirmed or suspected to have Coronavirus/COVID-19? No / Unsure 05/26/2023 2:02 PM EDT documented as of this encounter Plan of Treatment Upcoming Encounters Date Type Department Care Team (Late st Contact Info) Description 04/03/2025 4:15 PM EDT Office Visit [facility] Department of Dermatology [address] [place] [phone] Orly Posada PA-C [address] [place] [address] documented as of this encounter Visit Diagnoses Diagnosis Dyspnea, unspecified type documented in this encounter Care Teams Coiled Coil Inspector Relationship Specialty Start Date End Date Alisha Vincent [address] [facility] [address] [place] [address] PCP - General Internal Medicine 10/09/21 Alisha Vincent [address] [place] [address] [address] [place] [address] PCP - Insurance Payer PCP 06/15/24 06/20/24 Deng Alexis [address] [facility] [address] [place] [phone] PCP - Insurance Payer PCP 06/21/24 Demi Rachel MD [address] [address] [facility] [place] [address] Consulting Physician Obstetrics and Gynecology 10/09/21 documented as of this encounter
--- OUTSIDE RECORDS SUMMARY | 2025-01-28 11:22 | XMS_ITS | Clinical Summary ---
Author Organization [address] Address [address] [place] [address] Phone Care Team Providers Care Gas Welder Apprentice Name Role Phone Unavailable Primary Care Provider Unavailabl e Medications fexofenadine (GORDO) 180 mg tablet Take 1 tablet (180 mg total) by mouth daily. 120 tablet 3 11/10/2021 Active Active Problems No known active problems Social History Tobacco Use Types Packs/Day Years Used Date Smoking Tobacco: Never Assessed Comments Unknown Sex and Gender Information Value Date Recorded Sex Assigned at Not on file Legal Sex Female 12:36 AM EST Gender Identity Not on file Sexual Orientation Not on file Plan of Treatment Health Maintenance Due Date Last Done Comments HIV screening 1997 Hepatitis C screening 2002 Tetanus adult (Td q 10,TDAP once) 2004 Cervical cancer screening 2005 Influenza vaccine 06/21/2024 08/27/2019 Covid-19 vaccine series ( season) 2024 04/30/2021, 03/27/2021 Breast cancer screening 2024 Lipid disorder screening 2024 RSV Discussion (1 - 1-dose 7 5+ series) 2059 Meningococcal Vaccine Aged Out No shayne alfie eligible based on patient's age to complete this topic Pneumococcal Vaccine (2 - 49 years) Aged Out No longer eligible b ased on patient's age to complete this topic Insurance MEDICAID [place]
--- OUTSIDE RECORDS SUMMARY | 2025-01-28 11:22 | XMS_ITS ---
Author Organization [facility] Address [address] [place], [place] [id number] Care Team Providers Care Polish Compounder Name Role Phone Allyson Saleem Unavailable [phone] REASON FOR VISIT F/U Encounters Encounter Location Date Provider Diagnosis [address] [phone] 04/05/2024 Allyson Saleem Plan Of Treatment No Information Progress Notes * John TERRYNiOB:[birth year] (39 yo F)Acc No.[id number]:04/05/2024 Patient:?Lizette TERRY Provider:?Allyson Saleem ND :1985???Age:38 Y???Sex:Female D ate:04/05/2024 Address:[address], [address] [address] Subjective: * Chief Complaints: * ???1. F/U. * Medical History:? Objective: * Vitals:? Assessment: Plan: * Treatment: * * Electronic signature of Yolis Saleem ND on 01/28/2025 at 11:21 AM EDT Sign off status: Pending * Provider:?Allyson Saleem ND Date:? Generated for Jose gill/Enoc/eTransmitting on:?01/28/2025 11:21 AM EDT
--- OUTSIDE RECORDS SUMMARY | 2025-01-28 11:22 | XMS_ITS ---
Author Organization [facility] Address [address] [place], [place] [id number] Care Team Providers Care Platform Man Name Role Phone Allyson Saleem Unavailable [phone] REASON FOR VISIT w/o bill Encounters Encounter Location Date Provider Diagnosis [address] [phone] 02/24/2024 Allyson Saleem Plan Of Treatment No Information Progress Notes * John TERRYNiOB:[birth year] (38 yo F)Acc No.[id number]:02/24/2024 Patient:?Lizette TERRY :1985???Age:38 Y???Sex:Female Address:[address], [place] [address], [place] [address] * true * Date:? Generated for Printi ng/Faxing/eTransmitting on:?01/28/2025 11:21 AM EDT
--- OUTSIDE RECORDS SUMMARY | 2025-01-28 11:22 | XMS_ITS ---
Author Name [facility] Organization Unknown Results Test Name/Text Value Interpretation Date Range Source TROPONIN I HIGH SENSITIVE < 2.50 Below low normal [id number] 2.5 - 34 [facility] D-DIMER HIGH SENSITIVITY < 230 Normal [id number] 0 - 243 [facility] TROPONIN I HIGH SENSITIVE < 2.50 Below low normal [id number] 2.5 - 34 [facility] ALBUMIN 4.8g/dL Normal [id number] 3.2 - 4.8 [facility] SODIUM 140mmol/L Normal [id number] 136 - 145 [facility] GLUCOSE 88mg/dL Normal [id number] 74 - 106 [facility] BUN 11mg/dL Normal [id number] 9 - 23 [facility] BILIRUBIN,TOTAL 1.4mg/dL Above high normal [id number] 0.3 - 1.2 [facility] CHLORIDE 106mmol/L Normal [id number] 98 - 107 [facility] POTASSIUM SERUM 4.9mmol/L Normal [id number] 3.5 - 5.1 [facility] CO2 27mmol/L Normal [id number] 20 - 31 [facility] ALKALINE PHOSPHATASE 50U/L Normal [id number] 45 - 1 29 [facility] AST (SGOT) 26U/L Normal [id number] 0 - 34 [facility] GLOBULIN 2.3g/dL Normal [id number] 2.2 - 3.5 [facility] A/G RATIO 2.1g/dL Normal [id number] [facility] ALT (SGPT) 25U/L Normal [id number] 10 - 49 [facility] CREATININE 1.03mg/dL Above high normal [id number] 0.55 - 1 .02 [facility] BUN/CREAT.RATIO 10.7 Normal [id number] [facility] PROTEIN, TOTAL 7.1g/dL Normal [id number] 5.7 - 8.2 [facility] WBC 4.8K/uL Normal [id number] 3.7 - 10.3 [facility] ABSOLUTE GRANULOCYTES 2.5K/uL Normal [id number] 2.2 - 7.3 [facility] ABSOLUTE BASO 0K/uL Normal [id number] 0 - 0.2 [facility] RBC 4.99M/uL Normal [id number] 4 - 5.4 [facility] IMMATURE GRANULOCYTES 0% Normal [id number] 0 - 0 .45 [facility] EOSINOPHILS 2% Normal [id number] 0 - 6 [facility] MPV 11fL Normal [id number] 8 - 12 [facility] ABSOLUTE MONOS 0.5K/uL Normal [id number] 0.2 - 1.5 [facility] BASOPHILS 1% Normal [id number] 0 - 2 [facility] NUCLEATED RBC 0% Normal [id number] 0 - 0.2 [facility] MCV 90fL Normal [id number] 83 - 102 [facility] MCH 30PG Normal [id number] 27 - 34 [facility] HCT 44.8% Normal [id number] 36 - 46 [facility] ABSOLUTE LYMPHS 1.7K/uL Normal [id number] 1.5 - 4.9 [facility] GRANULOCYTES 51% Normal [id number] 23 - 78 [facility] MONOCYTES 10% Normal [id number] 0 - 12 [facility] ABSOLUTE EOS 0.1K/uL Normal [id number] 0 - 0.7 [facility] LYMPHS 36% Normal [id number] 16 - 50 [facility] ABSOLUTE IMMATURE GRANULOCYTES 0K/uL Normal [id number] 0 - 0.3 [facility] HGB 14.7g/dL Normal [id number] 12.1 - 15.7 [facility] RDW 13.2% Normal [id number] 11.1 - 13.3 [facility] PLATELET COUNT 192K/uL Normal [id number] 150 - 480 [facility] MCHC 32.8g/dL Normal [id number] 31 - 36 [facility] ABSOLUTE NUCLEATED RBC 0K/uL Normal [id number] 0 - 0.012 [facility] PATIENT FASTING? UNKNOWN Normal [id number] [facility] Normal [id number] 60 - [facility] SODIUM 140mmol/L Normal [id number] 136 - 145 [facility] GLUCOSE 98mg/dL Normal [id number] 74 - 100 [facility] BUN 9mg/dL Normal [id number] 7 - 18 [facility] CHLORIDE 109mmol/L Above high normal [id number] 98 - 107 [facility] POTASSIUM SERUM 3.9mmol/L Normal [id number] 3.5 - 5.1 [facility] CO2 27mmol/L Normal [id number] 21 - 32 [facility] CREATININE 1.03mg/dL Normal [id number] 0.55 - 1.3 [facility] MAGNESIUM 2.4mg/dL Normal [id number] 1.8 - 2.4 [facility] WBC 7.1K/uL Normal [id number] 3.7 - 10.3 [facility] ABSOLUTE GRANULOCYTES 4.1K/uL Normal [id number] 2.2 - 7.3 [facility] ABSOLUTE BASO 0K/uL Normal [id number] 0 - 0.2 [facility] RBC 4.69M/uL Normal [id number] 4 - 5.4 [facility] IMMATURE GRANULOCYTES 0% Normal [id number] 0 - 0 .45 [facility] EOSINOPHILS 1% Normal [id number] 0 - 6 [facility] MPV 10fL Normal [id number] 8 - 12 [facility] ABSOLUTE MONOS 0.6K/uL Normal [id number] 0.2 - 1.5 [facility] BASOPHILS 1% Normal [id number] 0 - 2 [facility] NUCLEATED RBC 0% Normal [id number] 0 - 0.2 [facility] MCV 89fL Normal [id number] 83 - 102 [facility] MCH 29PG Normal [id number] 27 - 34 [facility] HCT 41.8% Normal [id number] 36 - 46 [facility] ABSOLUTE LYMPHS 2.3K/uL Normal [id number] 1.5 - 4.9 [facility] GRANULOCYTES 57% Normal [id number] 23 - 78 [facility] MONOCYTES 9% Normal [id number] 0 - 12 [facility] ABSOLUTE EOS 0.1K/uL Normal [id number] 0 - 0.7 [facility] LYMPHS 32% Normal [id number] 16 - 50 [facility] ABSOLUTE IMMATURE GRANULOCYTES 0K/uL Normal [id number] 0 - 0.3 [facility] HGB 13.8g/dL Normal [id number] 12.1 - 15.7 [facility] RDW 13% Normal [id number] 11.1 - 13.3 [facility] PLATELET COUNT 193K/uL Normal [id number] 150 - [address] [facility] MCHC 33g/dL Normal [id number] 31 - 36 [facility] ABSOLUTE NUCLEATED RBC 0K/uL Normal [id number] 0 - 0.012 [facility] PATIENT FASTING? UNKNOWN Normal [id number] [facility] History of Medication Use Medication Directions Dispensed Refills Start Date End Date Status dexamethasone 2 mg tablet TAKE 1 TABLET BY MOUTH THREE TIMES A DAY TAKE 1 TABLET BY MOUTH THREE TIMES A DAY completed Lo Loestrin Fe 1 mg-10 mcg (24)/10 mcg (2) tablet TAKE 1 TABLET BY MOUTH EVERY DAY SKIP [place] PILLS 3 09/18/20 24 active tretinoin (RETIN-A) 0.05 % cream Apply topically nightly. 1 active Loc-Synalar 0.5 % (0.35 % base)-0.025 % topical cream TAKE 1 APPLICATION (TOPICAL) 2 TIMES PER DAY ( NEEDED - SKIN IRRITATION) FOR 14 DAYS 06/15/20 24 completed levothyroxine sodium (TIROSINT) 88 mcg capsule TAKE 1 TABLET BY MOUTH DAILY 1/2 HOUR BEFORE BREAKFAST 3 active LORazepam (ATIVAN) 1 mg tablet Take one tablet 45 minutes prior to MRI. May take a second tablet at MRI if needed for anxiety. 2 02/11/20 23 aborted polymyxin B sulfate 10,000 unit-trimethoprim 1 mg/mL eye drops INSTILL TWO DROPS IN THE AFFCTED EYE EVERY 4-6 HOURS WHILE AWAKE FOR 5 DAYS INSTILL TWO DROPS IN THE AFFCTED EYE EVERY 4-6 HOURS WHILE AWAKE FOR 5 DAYS completed liothyronine 5 mcg tablet TAKE 1/2 A TABLET BY MOUTH HALF HOUR BEFORE BREAKFAST active cromolyn 100 mg/5 mL oral concentrate USE 2 AMP (200MG) BY MOUTH 4 TIMES A DAY TITRATE UP SLOWLY DIRECTED 07/08/20 23 completed levocetirizine (XYZAL) 5 MG tablet 1 active cefdinir 300 mg capsule TAKE 1 CAPSULE BY MOUTH TWICE A DAY FOR 10 DAYS 06/15/20 24 completed TobraDex 0.3 %-0.1 % eye drops,suspension INSTILL ONE DROP IN THE LEFT EYE FOUR TIMES A DAY FOR A WEEK. SHAKE WELL 06/15/20 24 completed sulfamethoxazole 800 mg-trimethoprim 160 mg tablet TAKE 1 TABLET BY MOUTH TWICE A DAY TAKE 1 TABLET BY MOUTH TWICE A DAY completed erythromycin 5 mg/gram (0.5 %) eye ointment APPLY A THIN LAYER TO LEFT EYE FOUR TIMES DAILY X 7 DAYS APPLY A THIN LAYER TO LEFT EYE FOUR TIMES DAILY X 7 DAYS completed ammonium lactate (LAC-HYDRIN) 12 % cream Apply topically as needed for dry skin. 2 05/20/20 23 active fluticasone propionate 50 mcg/actuation nasal spray,suspension TAKE 2 (INTRANASAL) DAILY active liothyronine (CYTOMEL) 5 mcg tablet 1/2 TABLET BY MOUTH HALF HOUR BEFORE BREAKFAST active olanzapine 2.5 mg tablet TAKE 1 TABLET BY MOUTH EVERY DAY AT NIGHT 06/15/20 24 completed ciclopirox 0.77 % topical gel active azelaic Acid (FINACEA) 15 % external gel massage a thin film of azelaic acid cream into the affected area twice daily, in the morning and evening. 1 active azelaic acid 15 % topical gel PLEASE SEE ATTACHED FOR DETAILED DIRECTIONS 07/28/20 22 completed ketorolac 10 mg tablet TAKE 1 TABLET BY MOUTH EVERY 6-8 HOURS NEEDED FOR PAIN. active Macrobid 100 mg capsule Take 1 capsule twice a day by oral route for 7 days. Take 1 capsule twice a day by oral route for 7 days. completed levocetirizine 5 mg tablet TAKE 1 TABLET BY MOUTH TWICE A DAY NEEDED TAKE 1 TABLET BY MOUTH TWICE A DAY NEEDED completed clobetasoL (Cormax) 0.05 % external solution Apply to scalp twice daily for 2 weeks, discontinue 1 week and use again as needed. 2 02/11/20 23 active clotrimazole-betameth asone 1 %-0.05 % topical cream APPLY TO THE AFFECTED AND SURROUNDING AREAS OF SKIN BY TOPICAL ROUTE 2 TIMES PER DAY IN THE MORNING AND EVENING FOR 2 WEEKS APPLY TO THE AFFECTED AND SURROUNDING AREAS OF SKIN BY TOPICAL ROUTE 2 TIMES PER DAY IN THE MORNING AND EVENING FOR 2 WEEKS completed Tirosint 50 mcg capsule TAKE 1 (ONE) CAPSULE BY MOUTH HALF HOUR BEFORE BREAKFAST active Lo Loestrin Fe 1 MG-10 MCG / 10 MCG tablet 1 active TobraDex 0.3 %-0.1 % eye ointment APPLY A SMALL AMOUNT TO AFFECTED LIDS TWICE A DAY 06/15/20 24 completed mupirocin 2 % topical ointment APPLY 1 APPLICATION TO THE SKIN 3 TIMES A DAY APPLY 1 APPLICATION TO THE SKIN 3 TIMES A DAY completed [place] Thyroid 60 MG tablet 1 04/26/20 24 active tacrolimus 0.1 % topical ointment 08/18/20 22 completed ipratropium 0.5 mg-albuterol 3 mg (2.5 mg base)/3 mL nebulization soln TAKE 3 ML (INHALATION) 4 TIMES PER DAY FOR 5 DAYS 06/15/20 24 completed ketoconazole 2 % shampoo APPLY DAILY TO SKIN TO AFFECTED AREA EVERY DAY APPLY DAILY TO SKIN TO AFFECTED AREA EVERY DAY completed liothyronine 5 mcg tablet 1/2 TABLET BY MOUTH HALF HOUR BEFORE BREAKFAST 1/2 TABLET BY MOUTH HALF HOUR BEFORE BREAKFAST completed TobraDex 0.3 %-0.1 % eye drops,suspension INSTILL ONE DROP IN THE LEFT EYE FOUR TIMES A DAY FOR A WEEK. THOMAS TURNER 07/08/20 23 completed tacrolimus (PROTOPIC) 0.1 % ointment Apply to eyelids twice daily for up to 6 weeks, discontinue 1 week and use again only as needed. 2 02/11/20 23 active norethindrone (Ortho Micronor) 0.35 mg tablet Take 1 tablet (0.35 mg total) by mouth daily. 1 10/10/20 22 active Ventolin HFA 90 mcg/actuation aerosol inhaler INHALE 2 PUFFS EVERY 4 HOURS NEEDED FOR WHEEZING OR SHORTNESS OF BREATH 07/08/20 23 completed ammonium lactate 12 % topical cream APPLY TOPICALLY NEEDED FOR DRY SKIN. APPLY TOPICALLY NEEDED FOR DRY SKIN. completed promethazine-DM 6.25 mg-15 mg/5 mL oral syrup TAKE 5 ML BY MOUTH EVERY 4 TO 6 HOURS NEEDED FOR COUGH FOR 7 DAYS 07/08/20 23 completed levocetirizine (XYZAL) 5 mg tablet Take 1 tablet by mouth 2 (two) times a day as needed. active clobetasol 0.05 % scalp solution APPLY TO SCALP TWICE DAILY FOR 2 WEEKS, DISCONTINUE 1 WEEK AND USE AGAIN NEEDED. APPLY TO SCALP TWICE DAILY FOR 2 WEEKS, DISCONTINUE 1 WEEK AND USE AGAIN NEEDED. completed thyroid, pork, (ARMOUR THYROID) 60 mg tablet Take 60 mg by mouth Daily before breakfast. Alternating 60 mg twice daily every other day 1 02/11/20 23 active ondansetron 4 mg disintegrating tablet DISSOLVE 1 TABLET BY MOUTH EVERY 8 HOURS FOR 2-3 DAYS 09/15/20 24 completed Tirosint 50 mcg capsule TAKE 1 (ONE) CAPSULE BY MOUTH HALF HOUR BEFORE BREAKFAST TAKE 1 (ONE) CAPSULE BY MOUTH HALF HOUR BEFORE BREAKFAST completed estradiol 0.05 mg/24 hr semiweekly transdermal patch active clotrimazole-betameth asone (LOTRISONE) cream 1 active levothyroxine (SYNTHROID) 50 mcg tablet Take by mouth daily. 2 02/11/20 23 aborted clotrimazole-betameth asone 1 %-0.05 % lotion 08/18/20 22 completed niacin with Betaine - take 400mg capsule po daily 10/17/20 24 active albendazole 200 mg tablet TAKE 2 TABLET (ORAL) EVERY 2 WEEKS TAKE 2 TABLETS TODAY AND 2 TABLETS IN TWO WEEKS ON 04/0506/15/20 24 completed ondansetron 8 mg disintegrating tablet TAKE 1 TABLET BY MOUTH THREE TIMES A DAY NEEDED FOR NAUSEA active Slow Fe 137 mg (45 mg iron) tablet,extended release TAKE 1 TABLET PO DAILY active cannabidiol, CBD, (CANNABIDIOL ORAL) as needed. 02/11/20 23 aborted Tirosint 75 mcg capsule TAKE 1 (ONE) CAPSULE BY MOUTH HALF HOUR BEFORE BREAKFAST 07/08/20 23 completed spironolactone 50 mg tablet active azithromycin 250 mg tablet PLEASE SEE ATTACHED FOR DETAILED DIRECTIONS 01/10/20 24 active spironolactone 50 mg tablet Take 1 tablet every day by oral route. 4 active triamcinolone acetonide 0.1 % topical ointment APPLY 3 TIMES PER DAY FOR 7 DAYS 09/15/20 24 completed Vandazole 0.75 % (37.5 mg/5 gram) vaginal gel Insert 1 applicatorful every day by vaginal route at bedtime for 5 days. 06/08/20 21 completed famotidine 40 mg/5 mL (8 mg/mL) oral suspension TAKE 2.5 ML BY MOUTH TWICE DAILY TAKE 2.5 ML BY MOUTH TWICE DAILY completed Allergies Allergen Reaction Severity Comment Documented Date Source Status OMEPRAZOLE hives [facility] TITANIUM other moderate severity [facility] ABILIFY [facility] EGG itching [facility] TALC other mild [facility] PROGESTERONE seizure [facility] BENADRYL palpitations [facility] DIFLUCAN Rash [facility] ZOLOFT Other [facility] MEDICINAL PRODUCT CONTAINING PENICILLIN AND ACTING ANTIBACTERIAL AGENT (PRODUCT) hives severe [facility] WHEAT GLUTEN EXTRACT [facility] PRODUCT CONTAINING HYDROGEN/POTASSIUM ADENOSINE TRIPHOSPHATASE ENZYME SYSTEM INHIBITOR (PRODUCT) hives moderate [facility] DIPHENHYDRAMINE [facility] SUBSTANCE WITH HYDROGEN/POTASSIUM ADENOSINE TRIPHOSPHATASE ENZYME SYSTEM INHIBITOR MECHANISM OF ACTION (SUBSTANCE) hives [facility] Problems Problem Status Onset Date Problem Type Date of Resolution Source Tenderness of epigastrium active 2024-06-15 ProblemAct [facility] 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 [facility] Memory impairment active 2024-06-15 ProblemAct [facility] Bilateral wrist pain active 2024-07-25 ProblemAct [facility] 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 [facility] Allergic reaction to drug active 2024-10-17 ProblemAct [facility] Perioral dermatitis active 2024-10-17 ProblemAct [facility] Traumatic brain injury active 2024-06-15 ProblemAct [facility] Autism spectrum disorder active 2024-06-15 ProblemAct [facility] Postural orthostatic tachycardia syndrome active 2024-06-15 ProblemAct [facility] IA Autistic disorder active 2021-03-26 ProblemAct [facility] History of substance abuse active 2021-03-26 ProblemAct [facility] Dyspnea active 2023-02-10 ProblemAct [facility] Postural orthostatic tachycardia syndrome active 2021-03-26 ProblemAct [facility] Autistic disorder active 2021-03-26 ProblemAct [facility] 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 ProblemAct [facility] Mariusz-Danlos syndrome active 2021-06-08 ProblemAct [facility] POTS (postural orthostatic tachycardia syndrome) active 2021-03-26 ProblemAct [facility] Uterine leiomyoma active 2023-08-09 ProblemAct [facility] Fatigue active 2022-04-13 ProblemAct [facility] Chronic migraine without aura without status migrainosus, not intractable active 2022-04-13 ProblemAct [facility] Perioral dermatitis active EncounterDiagnosisAc t [facility] Migraine with aura and without status migrainosus, not intractable active 2023-02-10 ProblemAct [facility] Vitamin deficiency active 2022-04-15 ProblemAct [facility] Mariusz-Danlos syndrome active 2021-06-08 ProblemAct [facility] JOSÉ MANUEL (obstructive sleep apnea) active 2023-02-10 ProblemAct [facility] Disorder of thyroid gland active 2021-03-26 ProblemAct [facility] 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 ProblemAct [facility] Irritable bowel syndrome active 2021-06-08 ProblemAct [facility] 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-08 ProblemAct [facility] Breast density active EncounterDiagnosisAct [facility] Other disorder of impulse control active 2006-01-15 ProblemAct [facility] Dysphonia active 2016-07-25 ProblemAct [facility] Irritable colon active 2003-09-30 ProblemAct [facility] LPRD (laryngopharyngeal reflux disease) active 2016-07-25 ProblemAct [facility] Breast asymmetry active EncounterDiagnosisAct [facility] Depressive disorder active 2005-12-09 ProblemAct [facility] Asthma active 2005-12-09 ProblemAct [facility] Hypothyroidism active 2006-01-[address] Heterogeneously dense tissue of both breasts on mammography active EncounterDiagnosisAct [facility] Dysphagia active 2005-12-09 ProblemAct [facility] Immunizations Vaccine Date Source Lot Number Status Influenza, Quadrivalent 08/27/2019 [facility] [id number] c ompleted COVID-19 mRNA ([employer]) 04/30/2021 [facility] co mpleted Td (adult), 5 Lf tetanus tox oid, preservative free, adsorbed [facility] [id number] COVID-19, mRNA, LNP-S, PF, 30 mcg/0.3 mL dose 03/27/2021 [facility] [id number] completed
== END 2025-01-28 10:34 | disposition home or self-care (01) ==
PROVIDERS: Visit Provider Internal Medicine Gastroenterology
DX: R13.10 Dysphagia, unspecified (principal); D89.40 Mast cell activation, unspecified
CPT/HCPCS: 99214

== ENCOUNTER → 2025-01-28 10:10 | Outpatient (BNVA) | payer MEDICAID, SELFPAY | PROVIDERS: Visit Provider Internal Medicine Gastroenterology | DX: D89.40 Mast cell activation, unspecified (principal); R13.10 Dysphagia, unspecified | CPT/HCPCS: 99212 ==

== ENCOUNTER 2025-04-25 14:45 | Outpatient (REF) | payer OTHER, MEDICAID, SELFPAY ==
--- OUTSIDE RECORDS SUMMARY | 2025-04-25 17:25 | XMS_ITS | Patient Health Record ---
Author Organization [facility] Address [address], [place] [id number] Care Team Providers Care Admin Assistant Name Role Phone Allyson Saleem Unavailable [phone] Allergies Allergen (clinical drug ingredient) Drug/Non Drug Allergy documented on EMR Reaction Allergy Type Onset Date Status Ragweed (uncoded) Nasal congestion Allergy Active diphenhydramine Benadryl chest tightness Drug Allergy Active fluconazole Diflucan joint swelling Drug Allergy Active amoxicillin Amoxicillin hives Drug Allergy Act heidi cromolyn Cromolyn chest tightness Drug Allergy A ctive Penicillin hives Drug Allergy Active Substance with hydrogen/potassium adenosine triphosphatase enzyme system inhibitor mechanism of action (substance) Proton Pump Inhibitors hives Drug Allergy Active Reason For Referral No Information Medications Medication SIG (Take, Route, Frequency, Duration) Notes Start Date End Date Status Levocetirizine Dihydrochloride 5 MG TAKE 1 TABLET BY MOUTH TWICE A DAY NEEDED Oral for 30 Days Active Tirosint 88 MCG TAKE 1 TABLET BY DOUG TH DAILY 1/2 HOUR BEFORE BREAKFAST Oral for 30 Days Active Low Dose Naltrexone 4.5mg 1 capsule oral at bedtime Active Liothyronine Sodium 5 MCG TAKE 1/2 TABLE T BY MOUTH HALF HOUR BEFORE BREAKFAST Oral for 30 Days Active Problems Problem Type SNOMED Code ICD Code Onset Dates Problem Status W/U Status Risk Notes Problem Abdominal distension (gaseous) (R14.0) Active confirmed Problem Chronic fatigue syndrome (disorder) (07690320) Chronic fatigue, unspecified (R53.82) Active confirmed Problem Hormone abnormality (23636321) Abnormal level of hormones in specimens from other organs, systems and tissues (R89.1) Active confirmed Plan Of Treatment Pending Test Test Name Order Date LACTULOSE BREATH TEST 10/25/2023 Medical (General) History Medical History History ICD Code Trichotillomania chronic fatigue syndrome autism attention deficit disorder anxiety CPT[facility] lyme disease mononucleosis hashimotos thyroiditis endometriosis Concussion: 3 separate events fibroids ehler danlos syndrome
== END 2025-04-25 14:46 | disposition home or self-care (01) ==
LOC: HO.CT 14:45
PROVIDERS: Visit Provider Internal Medicine Gastroenterology
DX: Z13.89 Encounter for screening for other disorder (principal)